=== PATIENT | male | born 1960 | race Asian ===

== ENCOUNTER 2020-08-18 10:12 | Outpatient (REF) | payer MEDICARE, MEDICAID, SELFPAY ==
--- NOTE | 2020-08-18 | FL_ITS ---
EXAMINATION: FLUOROSCOPIC ESOPHAGRAM, BARIUM SWALLOW CLINICAL INFORMATION: Dysphagia. COMPARISON: None. TECHNIQUE: The barium swallow esophagram study is performed. The patient drank thick and thin barium consistencies under fluoroscopic observation with digital image acquisition. The patient was observed during swallowing in the lateral projection using a cine loop sequence. The patient also swallowed a 13 mm barium tablet with water under fluoroscopic observation. FINDINGS: Normal control of the liquid bolus with normal inversion of the epiglottis. No laryngeal penetration or aspiration. Normal esophageal motility. Normal caliber with no mucosal lesion or ulceration. No hiatal hernia. No spontaneous gastroesophageal reflux. The barium tablet coursed promptly into the stomach. No stricture. FLUOROSCOPY TIME: 0.8 minutes. Number of images excluding screen shots and cine loop: 8 IMPRESSION: Normal barium swallow/esophagram.
== END 2020-08-18 10:13 | disposition home or self-care (01) ==
LOC: HO.RADIR 10:12
PROVIDERS: PCP Internal Medicine; Visit Provider Otolaryngology
DX: R13.10 Dysphagia, unspecified (principal); K21.9 Gastro-esophageal reflux disease without esophagitis
CPT/HCPCS: 74220

== ENCOUNTER 2020-09-14 12:57 | Outpatient (REF) | payer MEDICARE, MEDICAID, SELFPAY ==
--- NOTE | 2020-09-14 | US_ITS ---
EXAMINATION: US PELVIS LIMITED (BLADDER) CLINICAL INFORMATION: Urinary retention. COMPARISON: None TECHNIQUE: Real-time imaging of the bladder. FINDINGS: BLADDER: Well distended and normal. The ureteral jets are not demonstrated.. Prevoid bladder volume is 295 mL. Postvoid bladder volume is 46 mL. The prostate gland is enlarged and measures 4.6 x 4.4 x 5.6 cm, volume 60 mL. US/US bladder IMPRESSION: 60 mL post port residual. Enlarged prostate gland..
== END 2020-09-14 12:58 | disposition home or self-care (01) ==
LOC: HO.HMGCX 12:57
PROVIDERS: PCP Internal Medicine; Visit Provider Internal Medicine
DX: R33.9 Retention of urine, unspecified (principal)
CPT/HCPCS: 76857

== ENCOUNTER → 2021-05-12 14:29 | Outpatient (BNVA) | payer MEDICARE, MEDICAID, SELFPAY | PROVIDERS: PCP Internal Medicine; Visit Provider Urology | DX: Z13.89 Encounter for screening for other disorder (principal) | CPT/HCPCS: 99202 ==

== ENCOUNTER → 2021-06-29 13:47 | Outpatient (BNVA) | payer MEDICARE, MEDICAID, SELFPAY | PROVIDERS: PCP Internal Medicine; Visit Provider Internal Medicine | DX: J98.4 Other disorders of lung (principal); J45.909 Unspecified asthma, uncomplicated; G47.33 Obstructive sleep apnea (adult) (pediatric); E66.9 Obesity, unspecified; Z99.89 Dependence on other enabling machines and devices | CPT/HCPCS: 99212 ==

== ENCOUNTER 2021-07-17 07:36 | Outpatient (REF) | payer MEDICARE, MEDICAID, SELFPAY ==
--- NOTE | 2021-07-17 17:43 | PFT_ITS ---
Forced vital capacity and FEV1 are moderately decreased. FEV1/FVC ratio is normal. [id number] is slightly decreased and has some improvement after bronchodilator therapy. Total lung capacity markedly decreased. Residual volume normal. Diffusion capacity normal. CONCLUSION: Severe restrictive pulmonary disorder is noted. The patient may have mild obstructive disorder of the small airways, which shows improvement after bronchodilator therapy. Compared to the results of PFT in 2019, the FVC, FEV1, and total lung capacity values are slightly improved. MD JANETT Luz/MODL / [id number]
== END 2021-07-17 07:37 | disposition home or self-care (01) ==
LOC: HO.RESP 07:36
PROVIDERS: PCP Internal Medicine; Visit Provider Internal Medicine
DX: J98.4 Other disorders of lung (principal); J45.909 Unspecified asthma, uncomplicated
CPT/HCPCS: 94060; 94727; 94729

== ENCOUNTER 2021-10-23 10:40 | Day surgery (SDC) | payer MEDICARE, MEDICAID, SELFPAY ==
--- NOTE | 2021-10-20 11:02 | P.CONAN_ITS ---
Documented by User: Inés Cochran NP 10/20/21 11:04 HPI - Anesthesia Eval Consult details Narrative: 60yo M for Upper Endoscopy and Colonoscopy [facility] Active Problems Active Problems: All Active Problems (Updated 10/16/21 @ 15:25 by Stacy Reeder, JESUSITA) Urinary frequency (Acute) Reactive airway disease (Acute) Restrictive lung disease (Acute) CRISTIANA on CPAP (Acute) Obesity (BMI 30-39.9) (Acute) Past Medical History Medical History (Updated 10/16/21 @ 15:25 by Stacy Reeder, RN) Asthma BPH (benign prostatic hyperplasia) COPD with exacerbation CPAP (continuous positive airway pressure) dependence GERD (gastroesophageal reflux disease) Hypothyroidism Morbid obesity Obesity (BMI 30-39.9) Obstructive sleep apnea CRISTIANA on CPAP Prediabetes Reactive airway disease Restless leg syndrome Restrictive lung disease Schizophrenia Surgical History Surgical History (Updated 10/16/21 @ 15:41 by Stacy Reeder RN) History of facial surgery History of left inguinal hernia repair Hx of colonoscopy Social History Social History Patient Tobacco Use Status: Former Tobacco user Quit Date: 2000 Smoked in Last 30 Days: No Use of substances other than those prescribed or required for medical reasons: No Are you DNR?: Yes Advance Directives: No Advance Directives Information Provided: Yes Meds Allergies Allergy/AdvReac Type Severity Reaction Status Date / Time No Known Allergies Allergy Verified 10/23/21 11:59 Home Medications Medication Instructions Recorded Confirmed Last Taken Type budesonide-formoterol HFA 160 1 puff PO BID 05/12/21 10/16/21 10/23/21 05:45 History mcg-4.5 mcg/actuation aerosol inhaler clonazepam 0.5 mg tablet 0.5 mg PO BEDTIME 05/12/21 10/16/21 Unknown History levothyroxine 100 mcg tablet 100 mcg PO DAILY 05/12/21 10/16/21 10/23/21 05:45 History olanzapine 7.5 mg tablet 7.5 mg PO BEDTIME 05/12/21 10/16/21 Unknown History omeprazole 20 mg capsule,delayed 20 mg PO DAILY 05/12/21 10/16/21 10/23/21 05:45 History release simvastatin 10 mg tablet 10 mg PO BEDTIME 05/12/21 10/16/21 Unknown History terazosin 2 mg capsule mg PO 05/12/21 Unknown History naproxen 500 mg tablet 500 mg PO BID 06/29/21 10/23/21 10/02/21 History triamcinolone acetonide 0.1 % 1 appl TOPICAL BID-TID 06/29/21 10/16/21 Unknown History topical cream cholecalciferol (vitamin D3) 50 50 mcg PO DAILY 10/16/21 10/16/21 Unknown History mcg (2,000 unit) tablet (Vitamin D3) flaxseed oil 1,000 mg capsule 1,000 mg PO DAILY 10/16/21 10/16/21 Unknown History multivitamin 1 tab PO DAILY 10/16/21 10/16/21 Unknown History omega-3 fatty acids 500 mg capsule 500 mg PO BID 10/16/21 10/23/21 10/09/21 History vitamin C 90 mg-zinc gluconate 15 da 10/16/21 Unknown History mg-herbal complex no. 325 lozenges (Elderberry Zinc Vit C) zinc 25 mg tablet mg PO 10/16/21 Unknown History Exam Exam Date and Time: October 20, 2021 1102 Narrative Narrative: PFT 06/2021 CONCLUSION:? Severe restrictive pulmonary disorder is noted. ? The patient may have mild obstructive disorder of the small airways, which shows improvement after bronchodilator therapy. ? Compared to the results of PFT in 2019, the FVC, FEV1, and total lung capacity values are slightly improved. 2019 MIBI neg for ischemia Assessment and Plan Assessment Anesthesia Assessment: Chart Reviewed Documented by User: Sami Wolfe MD 10/23/21 13:16 [facility] Past Medical History Medical History (Updated 10/16/21 @ 15:25 by Stacy Reeder RN) Asthma BPH (benign prostatic hyperplasia) COPD with exacerbation CPAP (continuous positive airway pressure) dependence GERD (gastroesophageal reflux disease) Hypothyroidism Morbid obesity Obesity (BMI 30-39.9) Obstructive sleep apnea CRISTIANA on CPAP Prediabetes Reactive airway disease Restless leg syndrome Restrictive lung disease Schizophrenia Family History Family history of problems with anesthesia: No Surgical History Surgical History (Updated 10/16/21 @ 15:41 by Stacy Reeder RN) History of facial surgery History of left inguinal hernia repair Hx of colonoscopy History of Problems with Anesthesia: No Social History Social History Patient Tobacco Use Status: Former Tobacco user Quit Date: 2000 Smoked in Last 30 Days: No Use of substances other than those prescribed or required for medical reasons: No Are you DNR?: Yes Advance Directives: No Advance Directives Information Provided: Yes Meds Allergies Allergy/AdvReac Type Severity Reaction Status Date / Time No Known Allergies Allergy Verified 10/23/21 11:59 Home Medications Medication Instructions Recorded Confirmed Last Taken Type budesonide-formoterol HFA 160 1 puff PO BID 05/12/21 10/16/21 10/23/21 05:45 History mcg-4.5 mcg/actuation aerosol inhaler clonazepam 0.5 mg tablet 0.5 mg PO BEDTIME 05/12/21 10/16/21 Unknown History levothyroxine 100 mcg tablet 100 mcg PO DAILY 05/12/21 10/16/21 10/23/21 05:45 History olanzapine 7.5 mg tablet 7.5 mg PO BEDTIME 05/12/21 10/16/21 Unknown History omeprazole 20 mg capsule,delayed 20 mg PO DAILY 05/12/21 10/16/21 10/23/21 05:45 History release simvastatin 10 mg tablet 10 mg PO BEDTIME 05/12/21 10/16/21 Unknown History terazosin 2 mg capsule mg PO 05/12/21 Unknown History naproxen 500 mg tablet 500 mg PO BID 06/29/21 10/23/21 10/02/21 History triamcinolone acetonide 0.1 % 1 appl TOPICAL BID-TID 06/29/21 10/16/21 Unknown History topical cream cholecalciferol (vitamin D3) 50 50 mcg PO DAILY 10/16/21 10/16/21 Unknown History mcg (2,000 unit) tablet (Vitamin D3) flaxseed oil 1,000 mg capsule 1,000 mg PO DAILY 10/16/21 10/16/21 Unknown History multivitamin 1 tab PO DAILY 10/16/21 10/16/21 Unknown History omega-3 fatty acids 500 mg capsule 500 mg PO BID 10/16/21 10/23/21 10/09/21 History vitamin C 90 mg-zinc gluconate 15 da 10/16/21 Unknown History mg-herbal complex no. 325 lozenges (Elderberry Zinc Vit C) zinc 25 mg tablet mg PO 10/16/21 Unknown History Exam Airway Mallampati Class: III TM Dist: >3cm Neck ROM: Full Partial: Upper Loose/Missing/Broken Teeth: Yes (broken teeth, missing teeth diffuse upper and lower, poor dentition) Heart: [id number] Lungs: +b/s bilaterally Assessment and Plan Assessment Anesthesia Assessment: Anesthesia Plan Discussed Final Anesthetic Review Family History of Problems with Anesthesia: No History of Problems with Anesthesia: No NPO: Yes ASA Class: III Final Preanesthetic Review: No Changes in Pt Med Stat, Meds/Allgs Chart Reviewed, Consent Obtained/Reviewed and Anes Risks/Benef Reviewed Patient Risk: High Procedure Risk: Intermediate Assessment/Block/Sedation in SS: Assess/Block/Sedation-SS Anesthetic Plan Anesthetic Plan: MAC: and Agree w/ Assess. and Plan Disposition: Standard PACU
[2021-10-23 12:06] VITALS: BMI 35.6
[2021-10-23 12:14] VITALS: BP 139/85; PULSE 85; RESP 16; TEMP 36.7; O2SAT 98
--- NOTE | 2021-10-23 12:45 | PC.NURSE ---
Patient states he has signed DNR paperwork in the past. Paperwork not with him today. HCP is his sister, Ramu Avendano [phone].
[2021-10-23] MEDS: Lactated Ringers 1,000 ML 100 ML IVCONT (13:03)
--- NOTE | 2021-10-23 14:22 | PM.OP ---
Brief Operative Note Date of Service: 10/23/21 Pre-op diagnosis: Iron def. anemia Post-op diagnosis: other (Hiatal hernia, R/O Celiac disease, Colon polyp) Procedure: EGD with bx, Colonoscopy to the cecum and TI with hot snare polypectomy and clipping x 2 Surgeon: Kendrick Kothari Anesthesia: MAC Was an Spectrograph Operator used for this Procedure?: No Estimated blood loss (mL): 3.0 Pathology: other (A. Descending duodenum B. Colon polyp at 30cm) Condition: stable Disposition: PACU
[2021-10-23 14:23] VITALS: BP 109/73; PULSE 92; RESP 15; TEMP 36.7; O2SAT 99
[2021-10-23 14:36] VITALS: BP 117/58; PULSE 91; RESP 18; TEMP 36.7; O2SAT 98
--- NOTE | 2021-10-23 14:40 | OP_ITS ---
SURGEON: Kendrick Kothari MD INDICATIONS: The patient presents for evaluation of iron-deficiency anemia and gastroesophageal reflux. Full consent has been obtained from him for both procedures, including risks of bleeding and perforation. PREOPERATIVE DIAGNOSIS: POSTOPERATIVE DIAGNOSIS: PROCEDURE PERFORMED: Esophagogastroduodenoscopy with biopsies, and colonoscopy to the cecum and terminal ileum with hot snare polypectomy and placement of 2 resolution clips. ESTIMATED BLOOD LOSS: COMPLICATIONS: ANESTHESIA: Monitored anesthesia care. ASSISTANTS: SPECIMENS: PREOPERATIVE DIAGNOSES: Gastroesophageal reflux and iron-deficiency anemia. POSTOPERATIVE DIAGNOSES: Gastroesophageal reflux and iron-deficiency anemia, small hiatal hernia, rule out celiac disease, colon polyp, diverticulosis, and internal hemorrhoids. DESCRIPTION OF PROCEDURE: The patient was placed in the left lateral decubitus position. The Olympus video gastroscope was passed in the posterior oropharynx and upper esophagus under direct vision. The scope was passed slowly to the distal esophagus. The gastroesophageal junction appeared normal at 36 cm. There was no sign of any esophagitis nor Abbott's esophagus. There was a small hiatal hernia. The scope was advanced to pylorus and duodenum was cannulated to the descending portion. The duodenum including the bulb appeared normal without mass or ulceration. Biopsies were obtained from the second and third portions of duodenum. The scope was withdrawn back into the stomach. The gastric antrum and body appeared normal with good peristalsis. The scope was retroflexed visualizing the proximal stomach carefully which appeared normal, without any sign of mass or ulceration. Scope was straightened and withdrawn back into the esophagus. The esophageal mucosa appeared normal. The scope was withdrawn from the patient. He was turned around for colonoscopy. The digital rectal exam revealed no abnormalities. The Olympus video pediatric colonoscope was entered into the rectum and advanced easily to the cecum. Once in the cecum, I did identify normal-appearing cecal pouch with appendiceal orifice and a normal-appearing ileocecal valve. The terminal ileum was cannulated and appeared normal. The scope was withdrawn back in the colon. The entire cecum and ileocecal valve appeared normal. The scope was slowly withdrawn assessing all mucosal surfaces carefully. Preparation was excellent. At 30 cm, was an approximately 6 to 8 mm polyp with an inflammatory appearance at the tip of the polyp, but with the base of the polyp appearing somewhat more adenomatous. This was snared and removed with the hot snare and then recovered by suction. There was some oozing post-polypectomy, and therefore, 2 Resolution clips were placed with good application and good hemostasis. The area was irrigated and observed and there was no further bleeding. I did not visualize any other polyps, colitis, nor angiodysplasia. There was a mild amount of sigmoid diverticulosis. In the rectum, scope was retroflexed visualizing internal hemorrhoids, but no other pathology. The rectal mucosa appeared normal. Scope was straightened out and withdrawn from the patient. He tolerated both procedures well and was returned to recovery area in stable condition. IMPRESSION: 1. Small hiatal hernia. 2. Rule out celiac disease. 3. Probable inflammatory colon polyp, status post snare polypectomy. 4. Diverticulosis. 5. Internal hemorrhoids. PLAN: The results of the pathology will be checked. He has been advised to resume his iron, but not to use any aspirin or NSAIDs for at least 1 week. He will be seen in followup for an office visit. MD CLYDE Bello/JAILENE / [id number]
== END 2021-10-23 15:07 | disposition home or self-care (01) ==
PROVIDERS: PCP Internal Medicine; Visit Provider Internal Medicine
PROC: (CPT 45385; principal; 2021-10-23 12:10)
DX: D50.9 Iron deficiency anemia, unspecified (principal); K51.40 Inflammatory polyps of colon without complications; K57.30 Diverticulosis of large intestine without perforation or abscess without bleeding; K64.8 Other hemorrhoids; K21.9 Gastro-esophageal reflux disease without esophagitis; K29.80 Duodenitis without bleeding; K31.89 Other diseases of stomach and duodenum; K44.9 Diaphragmatic hernia without obstruction or gangrene; G47.33 Obstructive sleep apnea (adult) (pediatric); J44.9 Chronic obstructive pulmonary disease, unspecified; E03.9 Hypothyroidism, unspecified; R73.03 Prediabetes; E66.01 Morbid (severe) obesity due to excess calories; Z68.38 Body mass index [BMI] 38.0-38.9, adult; Z79.51 Long term (current) use of inhaled steroids; Z79.899 Other long term (current) drug therapy; Z99.89 Dependence on other enabling machines and devices; Z79.1 Long term (current) use of non-steroidal anti-inflammatories (NSAID); Z87.891 Personal history of nicotine dependence; Z66 Do not resuscitate
CPT/HCPCS: 45385; 43239; 88305

== ENCOUNTER → 2022-01-22 14:03 | Outpatient (BNVA) | payer MEDICARE, MEDICAID, SELFPAY | PROVIDERS: PCP Internal Medicine; Visit Provider Internal Medicine | DX: G47.33 Obstructive sleep apnea (adult) (pediatric) (principal); J45.909 Unspecified asthma, uncomplicated; J98.4 Other disorders of lung; E66.9 Obesity, unspecified; Z99.89 Dependence on other enabling machines and devices; Z68.36 Body mass index [BMI] 36.0-36.9, adult | CPT/HCPCS: 99212 ==

== ENCOUNTER 2022-05-25 06:51 | Outpatient (REF) | payer MEDICARE, MEDICAID, SELFPAY ==
--- NOTE | ~2022-05-25 | XR_ITS ---
EXAMINATION: XR CHEST CLINICAL INFORMATION: Elevated right diaphragm with adjacent scarring or subsegmental atelectasis right middle and lower lobe on noncontrast CT. COMPARISON: Chest radiographs 10/09/2016, 01/18/2016; CT chest noncontrast 07/15/2020. TECHNIQUE: 2 views of the chest were obtained. FINDINGS: There is chronic eventration right anterior mid diaphragm with crowding bronchovascular markings adjacent to the elevation similar to prior CT. There is no lobar or segmental airspace consolidation or effusion. The costophrenic sulci are clear. Cardiopericardial silhouette and hilar and mediastinal contours are similar to prior studies. No acute bony abnormality. XR/XR chest 2V IMPRESSION: -Eventration right anterior mid diaphragm with secondary passive atelectasis right base similar to CT 2020. -No lobar or segmental airspace consolidation or effusion.
== END 2022-05-25 06:52 | disposition home or self-care (01) ==
LOC: HO.XRAY 06:51
PROVIDERS: PCP Internal Medicine; Visit Provider Internal Medicine
DX: J98.11 Atelectasis (principal)
CPT/HCPCS: 71046

== ENCOUNTER → 2022-08-06 13:59 | Outpatient (BNVA) | payer MEDICARE, MEDICAID, SELFPAY | PROVIDERS: PCP Internal Medicine; Visit Provider Internal Medicine | DX: J45.909 Unspecified asthma, uncomplicated (principal); J98.4 Other disorders of lung; G47.33 Obstructive sleep apnea (adult) (pediatric); E66.9 Obesity, unspecified; Z68.38 Body mass index [BMI] 38.0-38.9, adult; Z99.89 Dependence on other enabling machines and devices | CPT/HCPCS: 99212 ==

== ENCOUNTER → 2023-04-22 13:35 | Outpatient (BNVA) | payer MEDICARE, MEDICAID, SELFPAY | PROVIDERS: PCP Internal Medicine; Visit Provider Internal Medicine | DX: G47.33 Obstructive sleep apnea (adult) (pediatric) (principal); J98.4 Other disorders of lung; J45.909 Unspecified asthma, uncomplicated; Q85.00 Neurofibromatosis, unspecified; Q79.1 Other congenital malformations of diaphragm; E66.9 Obesity, unspecified; Z79.899 Other long term (current) drug therapy; Z68.36 Body mass index [BMI] 36.0-36.9, adult | CPT/HCPCS: 99212 ==

== ENCOUNTER 2023-08-14 13:56 | Outpatient (AMB) | payer MEDICARE, MEDICAID, SELFPAY ==
--- NOTE | 2023-08-14 13:58 | MHC.OFFVIS ---
Intake Vital Signs 08/14/23 14:03 Height 5 ft 10 in Weight 260 lb BMI 37.3 BP 130/60 Blood Pressure Location Rt brachial Position Sitting Pulse 76 Pulse Source Pulse Oximeter Pulse Oximetry (%) 96 Oxygen Delivery Method Room Air Intake Visit Reasons: Obstructive sleep apnea Intake Note: pt is here for follow up of CRISTIANA, feels good, but does get short of breath with walking, some voice issues Allergies No Known Allergies Allergy (Verified 08/14/23 14:08) Medication List - Last Reconciled 08/14/23 by Amilcar Rivas MD albuterol sulfate 90 mcg/actuation (ProAir HFA) 2 puffs inhalation Q4-6H PRN 90 days cholecalciferol (vitamin D3) (Vitamin D3) 50 mcg PO DAILY clonazepam 0.5 mg PO BEDTIME levothyroxine 100 mcg PO DAILY mometasone-formoterol 200-5 mcg/actuation (Dulera) 2 puffs inhalation BID 90 days MDD 4 puffs multivitamin 1 tab PO DAILY PRN naproxen 500 mg PO BID olanzapine 7.5 mg PO BEDTIME omega-3 fatty acids 500 mg PO BID omeprazole 20 mg PO DAILY simvastatin 10 mg PO BEDTIME Spiriva with HandiHaler (tiotropium bromide) 1 cap inhalation DAILY NS tamsulosin (Flomax) 0.4 mg PO BEDTIME terazosin 4 mg PO BID triamcinolone acetonide 0.1% 1 appl topical BID-TID vit C-Zn gluc-herbal no.325 90-15 mg (Elderberry Zinc Vit C) da zinc mg PO Do you need a note to return to daycare/school/sports/work: No HPI Obstructive sleep apnea HPI Details 62 years old gentleman, with diagnosis of obstructive sleep apnea, gross obesity, Neurofibromatosis, chronic eventration of right hemidiaphragm, restrictive and obstructive lung disorder, Comes after 6 months for follow-up. He has new CPAP device which works very good. Uses his CPAP very regularly every day, up to 8 hours per night. He sleeps very well, Denies any daytime sleepiness. Breathing is well controlled, and he has had no acute exacerbations. He is up to date with vaccinations. He has increased walking on a daily bases but weight remains unchanged. [facility] Medical History Diaphragmatic eventration Neurofibromatosis Prediabetes Schizophrenia Hypothyroidism BPH (benign prostatic hyperplasia) GERD (gastroesophageal reflux disease) Restless leg syndrome Reactive airway disease Restrictive lung disease CRISTIANA on CPAP Obesity (BMI 30-39.9) CPAP (continuous positive airway pressure) dependence COPD with exacerbation Asthma Obstructive sleep apnea Morbid obesity Surgical History Hx of colonoscopy History of facial surgery History of left inguinal hernia repair Social History Patient Tobacco Use Status: Former Tobacco user Quit Date: 2000 Review of Systems Const All systems reviewed & are unremarkable except as noted in HPI and below Eyes Reports no additional complaints ENT Reports no additional complaints Card Denies chest pain, Denies irregular heart rhythm and Denies leg edema Resp Reports as per HPI GI Reports dyspepsia (BEING TREATED WITH OMEPRAZOLE ) and Reports heartburn Reports no additional complaints Musc Reports no additional complaints Neuro Reports no additional complaints Psych Reports anxiety (UNDER CONTROL) and Reports depression (UNDER CONTROL) Endo Reports no additional complaints Physical Exam Vital Signs: Last Vital Signs Pulse 76 08/14/23 14:03 BP 130/60 08/14/23 14:03 Pulse Ox 96 08/14/23 14:03 Oxygen Delivery Method Room Air 08/14/23 14:03 BMI result Body Mass Index 37.3 Const Other: Remains grossly overweight and there has been no change in his weight in the last 6 months. General: comfortable, no acute distress, alert and awake Orientation/consciousness: patient oriented x3 HEENT Head: Yes normal to inspection General nose exam: No nasal polyps present and No nasal discharge present Face and sinus: Yes sinuses nontender Mouth: oropharynx normal Throat: Yes posterior oropharynx normal Eyes General: appearance normal, both eyes and all related structures Neck Neck: Yes normal visual inspection, Yes no lymphadenopathy, Yes trachea midline and Yes no JVD Thyroid: Thyroid normal Chest Chest palpation & inspection: normal inspection of the chest, normal palpation of entire chest wall and no tenderness Resp Other: Percussion note is resonant, breath sounds are generally diminished,equal on both sides, more so over the rt lower lobe . But no wheezes rhonchi or Creps are heard. Cardio Palpation: normal PMI Rate: regular rate Rhythm: regular rhythm Heart sounds: no gallops and no murmurs Peripheral pulses: Peripheral pulses 2+ throughout GI Palpation (GI): Soft to palpation, nontender, No hepatosplenomegaly present and no masses Auscultation: normal bowel sounds Back/Spine/Pelvis Thoracic/Lumbar Spine: thoracic and lumbar spine normal to inspection Skin General skin exam: rashes and/or lesions noted (He has extensive, generalized in neurofibromatosis lesions.) Neuro General: patient oriented x3 and no focal motor deficits Cranial nerves: Yes CN's II-XII intact bilaterally Extrem General: Yes normal to inspection, Yes no clubbing, cyanosis or edema and Yes no calf tenderness Psych Appearance: grossly normal and well kempt Speech and movement: Normal speech and movement present Results Reviewed Results Reviewed: COMPLIANCE REPORT FOR THE LAST 30 NIGHTS IS REVIEWED. USED 30/30 NIGHTS, AVERAGE USE PER NIGHT 8 HOURS. PRESSURE 12 CM. THERE IS A MODERATE AMOUNT OF AIR LEAK. RESIDUAL AHI 0.2 Assessment & Plan Assessment & Plan (1) Obesity (BMI 30-39.9): Comment: HE IS WELL AWARE OF THIS . HE HAS BEEN RESTRICTING HIS DIETRY INTAKE AND ALSO WALKING MORE OFTEN DURING THE DAY. WEIGHT IS HOLDING STABLE . Code(s): E66.9 - Obesity, unspecified (2) CRISTIANA on CPAP: Comment: HE HAS LONGSTANDING HISTORY OF CRISTIANA. HE HAS NEW CPAP EQUIPMENT, WHICH IS WORKING VERY WELL. HE HAS BEEN VERY COMPLIANT TO THE USE OF CPAP AND IS SLEEPING WELL NO CHANGES NEEDED. Code(s): G47.33 - Obstructive sleep apnea (adult) (pediatric); Z99.89 - Dependence on other enabling machines and devices (3) Restrictive lung disease: Comment: SEVERE RESTRICTIVE PULMONARY DISORDER SEC .TO : EVENTRATION OF RT HEMIDIAPHRAGM AND OBESITY . TX: CONTINUE TO DO DEEP BREATHING EXERCISES DAILY. CONTINUE TO LOSE WEIGHT. , BY RESTRICTING DIETARY INTAKE AND WALKING MORE EVERY DAY. Code(s): J98.4 - Other disorders of lung (4) Reactive airway disease: Comment: HIS GOOD RESPONSE TO BRONCHODILATORS INDICATES THAT HE PROBABLY DOES HAVE REACTIVE AIRWAYS DISORDER/ASTHMA , IN ADDITION TO RESTRICTIVE LUNG DISEASE. TX CONTINUE SPIRIVA HANDIHALER 1 INHALATION DAILY AND DULERA 200-5 2 puffs bid . ALBUTEROL HFA 2 PUFFS Q 6 HRS PRN Code(s): J45.909 - Unspecified asthma, uncomplicated (5) Diaphragmatic eventration: Comment: He has had eventration of the right hemidiaphragm. Most likely congenital or may be due to some accident in younger age that he is not aware of. This is partly contributing to his restrictive lung disorder. Code(s): 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 Coding Level of Care Code Est Pt Level 3 (75929) Diagnoses Obesity (BMI 30-39.9) E66.9 CRISTIANA on CPAP G47.33; Z99.89 Restrictive lung disease J98.4 Reactive airway disease J45.909 Diaphragmatic eventration Q79.1
[2023-08-14 14:03] VITALS: BP 130/60; PULSE 76; O2SAT 96; BMI 37.3
== END 2023-08-14 14:21 | disposition home or self-care (01) ==
PROVIDERS: PCP Internal Medicine; Visit Provider Internal Medicine
DX: E66.9 Obesity, unspecified (principal); G47.33 Obstructive sleep apnea (adult) (pediatric); Z99.89 Dependence on other enabling machines and devices; J98.4 Other disorders of lung; J45.909 Unspecified asthma, uncomplicated; Q79.1 Other congenital malformations of diaphragm
CPT/HCPCS: 99213

== ENCOUNTER → 2023-08-14 13:56 | Outpatient (BNVA) | payer MEDICARE, MEDICAID, SELFPAY | PROVIDERS: PCP Internal Medicine; Visit Provider Internal Medicine | DX: G47.33 Obstructive sleep apnea (adult) (pediatric) (principal); J98.4 Other disorders of lung; J45.909 Unspecified asthma, uncomplicated; Q79.1 Other congenital malformations of diaphragm; E66.9 Obesity, unspecified; Z99.89 Dependence on other enabling machines and devices; Z68.37 Body mass index [BMI] 37.0-37.9, adult | CPT/HCPCS: 99212 ==

== ENCOUNTER 2024-01-16 09:32 | Outpatient (AMB) | payer MEDICARE, MEDICAID, SELFPAY ==
--- NOTE | 2024-01-16 09:50 | A.OFFVIS_ITS ---
Intake Vital Signs 01/16/24 09:51 Height 5 ft 10 in Weight 238 lb 1.588 oz BMI 34.2 BP 128/78 Blood Pressure Location Lt brachial Position Sitting Pulse 84 Intake Visit Reasons: Family Hx CAD Intake Note: pt has chest pain and family hx CAD Career Advisor Required: No Allergies No Known Allergies Allergy (Verified 08/14/23 14:08) Medication List - Last Reconciled 01/16/24 by Pedro Steward MD albuterol sulfate 90 mcg/actuation (ProAir HFA) 2 puffs inhalation Q4-6H PRN 90 days clonazepam 0.5 mg PO BEDTIME levothyroxine 100 mcg PO DAILY mometasone-formoterol 200-5 mcg/actuation (Dulera) 2 puffs inhalation BID 90 days MDD 4 puffs multivitamin 1 tab PO DAILY PRN naproxen 500 mg PO BID olanzapine 7.5 mg PO BEDTIME omeprazole 20 mg PO DAILY simvastatin 10 mg PO BEDTIME Spiriva with HandiHaler (tiotropium bromide) 1 cap inhalation DAILY NS tamsulosin (Flomax) 0.4 mg PO BEDTIME terazosin 4 mg PO BID triamcinolone acetonide 0.1% 1 appl topical BID-TID vit C-Zn gluc-herbal no.325 90-15 mg (Elderberry Zinc Vit C) da HPI HPI Comments History of Present Illness Details Guillermo comes for a self-referral for evaluation of coronary artery disease. He has a pleasant 63-year-old [place] male with prior medical history of COPD related to smoking, obesity, borderline diabetes not on medications, hyperlipidemia on statin therapy with well optimized cholesterol as per him, no hypertension, obstructive sleep apnea. 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 Patient does get exertional shortness of breath but compared to 4 years ago he says shortness of breath after pulmonary rehab and with regular exercise has been improving. Her he can not walk outside for long period time because of shortness of breath. However the symptoms are not new. He does not get any exertional chest pain. Occasionally gets twinges in his chest that last for 7 seconds happening mostly at rest. However he is concerned about coronary artery disease given his risk factors especially premature coronary artery disease in his father who had coronary artery bypass grafting at a young age and his brother recently had a very high coronary calcium score of greater than 2000 and require a stent. He is worried about himself having coronary artery disease. He denies any orthopnea, PND, leg edema. Denies any prolonged palpitation irregular heartbeat. No lightheadedness, syncope. [facility] Medical History Diaphragmatic eventration Neurofibromatosis Prediabetes Schizophrenia Hypothyroidism BPH (benign prostatic hyperplasia) GERD (gastroesophageal reflux disease) Restless leg syndrome Reactive airway disease Restrictive lung disease CRISTIANA on CPAP Obesity (BMI 30-39.9) CPAP (continuous positive airway pressure) dependence COPD with exacerbation Asthma Obstructive sleep apnea Morbid obesity Surgical History Hx of colonoscopy History of facial surgery History of left inguinal hernia repair Social History Patient Tobacco Use Status: Former Tobacco user Quit Date: 2000 Review of Systems Const Denies weakness Eyes Denies loss of vision ENT Denies dizziness Card Reports chest pain, Denies chest pain with activity, Denies syncope, Denies rapid heart rate, Denies pedal edema, Denies edema, Denies leg edema, Denies lightheadedness, Denies palpitations, Denies dyspnea, Denies dyspnea on exertion and Denies orthopnea Resp Denies cough, Denies dyspnea, Denies dyspnea on exertion and Denies wheezing GI Denies hematochezia and Denies change in stool character Denies dysuria and Denies urinary frequency Musc Denies abnormal gait, Denies muscle cramps, Denies muscle weakness, Denies numbness, Denies radiating pain into limb and Denies tingling Skin/Breast Denies nail changes and Denies rash Neuro Denies abnormal gait, Denies dizziness, Denies syncope, Denies loss of vision, Denies memory loss, Denies numbness, Denies tingling and Denies weakness Psych Denies depression and Denies memory loss Endo Denies palpitations [place]/Lymph Reports easy bruising and Reports other (anemia) Aller/Immun Denies wheezing Physical Exam Vital Signs: Last Vital Signs Pulse 84 01/16/24 09:51 BP 128/78 01/16/24 09:51 BMI result Body Mass Index 34.2 Const General: cooperative, comfortable, no acute distress, alert, awake and Physically active Nutritional Appearance: obese Orientation/consciousness: patient oriented x3 Limitations: no limitations HEENT Head: Yes normocephalic and Yes atraumatic Neck Neck: Yes trachea midline and Yes no JVD Resp Effort & Inspection: normal respiratory effort Auscultation: clear to auscultation bilaterally, no wheezes and diminished lung sounds Cardio Jugular venous distension: no JVD Palpation: normal PMI Rate: regular rate Rhythm: regular rhythm Heart sounds: S1 normal heart sound present, S2 normal heart sound present, no click, no gallops, no murmurs and no rubs GI Auscultation: normal bowel sounds Skin General skin exam: no rashes or lesions noted Neuro General: patient oriented x3 and no focal motor deficits Extrem General: Yes no clubbing, cyanosis or edema Office Procedures EKG Details: EKG shows normal sinus rhythm with diffuse non specific ST T wave changes with rightward axis [id number], Complete Assessment & Plan Assessment & Plan (1) SOB (shortness of breath) on exertion: Code(s): R06.02 - Shortness of breath Plan: Shortness of breath on exertion most likely related pulmonary parenchymal disease and possibly restrictive pulmonary defect related to his obesity, although cor pulmonale and/or LV systolic/diastolic dysfunction needs to be ruled out. Will suggest echocardiogram to further assess for the same. This will be scheduled in near future. He has high likelihood with multiple risk factors for underlying coronary artery disease. I think it is reasonable to proceed with coronary calcium score as initial screening test and further testing based on the findings of coronary calcium score. If he has significant elevated coronary calcium score would suggest cardiac catheterization. If he has moderately elevated calcium score would suggest a stress test to further assess for myocardial ischemia that would need invasive cardiac catheterization. This was discussed with him. He should be on aggressive statin therapy with target goal LDL less than 70 mg/dL. Will obtain lipid panel from your office. Blood pressure is currently well optimized. Hemoglobin A1c less than 7%. He is encouraged to continue to participate in regular physical activity and participate in weight loss program. He understands agrees. Follow up in the clinic after above-mentioned test. Thank you for allowing me to partake in his care Orders: Orders CT Coronary Calcium Score 1 Week R06.02 - Shortness of breath CA echo transthoracic complete Today R06.02 - Shortness of breath Coding Level of Care Code New Pt Level 4 (48899) Diagnoses SOB (shortness of breath) on exertion R06.02 CPT Codes EKG - CPT: 36393-[id number], Complete ([id number])
[2024-01-16 09:51] VITALS: BP 128/78; PULSE 84; BMI 34.2
== END 2024-01-16 10:27 | disposition home or self-care (01) ==
PROVIDERS: PCP Internal Medicine; Visit Provider Internal Medicine Cardiovascular Disease
DX: R06.02 Shortness of breath (principal)
CPT/HCPCS: 93010; 99204

== ENCOUNTER → 2024-01-16 09:32 | Outpatient (BNVA) | payer MEDICARE, MEDICAID, SELFPAY | PROVIDERS: PCP Internal Medicine; Visit Provider Internal Medicine Cardiovascular Disease | DX: R06.02 Shortness of breath (principal) | CPT/HCPCS: 93005; 99202 ==

== ENCOUNTER → 2024-01-17 08:10 | Outpatient (REF) | payer MEDICARE, MEDICAID, SELFPAY ==
--- NOTE | 2024-01-17 08:13 | CA_ITS ---
Transthoracic Echocardiogram Patient (Last, First, Middle): Guillermo Cosby, Gender: Male Date of : 1960 Age: 63 Procedure Date: 01/17/2024 Procedure Type: Transthoracic Echocardiogram Location: OP Height: 175.26 cm Weight: 117.99 kg BSA: 2.31 m2 Heart Rate: 74 bpm BP: 120 / 65 mmHg Framing Inspector: ELIUD Referring MD: Pedro Steward MD Symptoms: R06.02 - Shortness of breath Study Quality: Adequate ECG Rhythm: Sinus Conclusions: - The left ventricular systolic function is normal. The calculated ejection fraction is 69% by biplane method. - There is moderately increased left ventricular wall thickness. - No obvious valvular pathology seen on this study. Findings Left Ventricle Normal left ventricular cavity size. There is moderately increased left ventricular wall thickness. The left ventricular systolic function is normal. The calculated ejection fraction is 69% by biplane method. There is no evidence of regional wall motion abnormalities. Diastolic function is normal for age. LV peak GLS -20.2%. Right Ventricle Normal right ventricular cavity size and systolic function. Atria Both atria are normal in size. Aortic Valve The aortic valve was not well visualized. There is no aortic valve stenosis. There is no aortic valve regurgitation. Mitral Valve The mitral valve appears normal. There is no mitral valve regurgitation. There is no mitral valve stenosis. Pulmonic Valve The pulmonic valve is likely normal. Tricuspid Valve There is trace tricuspid valve regurgitation. There is no evidence of pulmonary hypertension. Great Vessels The asc aorta is normal in size. Venous The inferior vena cava is normal in size and collapses greater than 50% with inspiration. Pericardium/Pleural There is no evidence of pericardial effusion. Prior Study Comparison No prior study available for comparison. Recommendations, Care & Conclusions No obvious valvular pathology seen on this study. Measurements 2D Linear Measurements IVSd: 1.41 0.6-0.9/0.6-1.0 cm LVIDd: 5.21 3.9-5.3/4.2-5.9 cm LVIDd Index: 2.26 2.4-3.2/2.2-3.1 cm/m2 LVIDs: 3.01 2.0-3.6 cm LVPWd: 1.51 0.7-1.1 cm LA Diam: 3.90 2.7-3.8/3.0-4.0 cm LAIDs Index: 1.69 1.5-2.3 cm/m2 LV Mass: 411.78 67-162/88-224 g LV Mass Index: 178.26 43-95/49-115 g/m2 LVOT Diam: 2.20 3.0+(-)1.3 cm 2D Systolic Function EF 4C: 65.00 >55% EF 2C: 72.10 >55% EF BiP: 68.80 >55% Mitral Valve MV Pk E: 0.73 MV PK A: 0.90 MV Decel Time: 227.00 E/A: 0.80 E'Lateral: 5.44 E'Medial: 6.42 E/E' Med: 11.40 E/E' Lat: 13.50 PHT: 67.00 MVA PHT: 3.28 Decel [place]: 3.23 Aortic Valve AoV Pk Dru: 1.65 AoV Mn Dru: 1.20 AoV VTI: 0.35 AoV Pk Grad: 11.00 Aov Mn Grad: 6.00 STEPHANIE Cont.VTI: 2.82 LVOT LVOT Pk Dru: 1.27 LVOT Mn Dru: 0.86 LVOT VTI: 0.26 LVOT Pk Grad: 6.00 LVOT Mn Grad: 3.00 LVOT Diam: 2.20 LVOT Area: 3.80 Diastolic Function MV Pk E: 0.73 MV Pk A: 0.90 E/A: 0.80 E'Medial: 6.42 E/E' Med: 11.40 E' Laterial: 5.44 E/E' Lat: 13.50 Right Ventricle TAPSE (mm): 24.30 TVS' Dru: 18.80 Tricuspid Valve RA Press: 3.00 Great Vessels Aorta Sinus of Valsalva: 4.10 2.0-3.5 cm Ao Asc: 3.60 2.1-3.4 cm Pulmonary Valve PV Pk Dru: 1.34 Peak PV Grad: 7.00 Updated in Other Vendor System with Status of Final Neal Loyola MD electronically signed on 01/18/2024 12:23:45 PM with status of Final
== END ==
LOC: HO.CARD 08:10
PROVIDERS: PCP Internal Medicine; Visit Provider Internal Medicine Cardiovascular Disease
DX: R06.02 Shortness of breath (principal)
CPT/HCPCS: 93306; 93356

== ENCOUNTER → 2024-01-17 08:13 | Outpatient (BNV) | payer MEDICARE, MEDICAID, SELFPAY | PROVIDERS: PCP Internal Medicine; Visit Provider Internal Medicine | DX: R06.02 Shortness of breath (principal) | CPT/HCPCS: 93306 ==

== ENCOUNTER 2024-02-12 07:49 | Outpatient (REF) | payer MEDICARE, MEDICAID, SELFPAY ==
[2024-02-12 08:32] LABS: Hemoglobin 14.1 g/dl (14.0-18.0); Mean Corpuscular HGB Conc 31.3 g/dl (31.0-36.0); Mean Corpuscular Hemoglobin 24.2 pg (27.0-33.0); Mean Corpuscular Volume 77.2 fL (80.0-98.0); Mean Platelet Volume 10.8 fL (9.4-12.4); Platelet Count 282 X10*3/uL (160-400); Red Blood Count 5.83 X10*6/uL (4.60-5.80); Red Cell Distribution Width 14.6 % (11.0-16.0); White Blood Count 8.8 X10*3/uL (4.8-10.8)
[2024-02-12 08:33] LABS: Prothrombin Time 11.6 SEC (11.1-13.3)
[2024-02-12 08:51] LABS: Anion Gap 11 (12-20); Blood Urea Nitrogen 18 mg/dL (9-16); Calcium 9.7 mg/dL (8.4-10.2); Carbon Dioxide 29 mmol/L (22-29); Chloride 102 mmol/L (96-108); Estimated Glomerular Filt Rate > 60; Glucose Random 159 mg/dL (60-115); Potassium 4.3 mmol/L (3.3-5.1); Sodium 138 mmol/L (135-145)
== END 2024-02-12 07:50 | disposition home or self-care (01) ==
LOC: HO.LAB 07:49
PROVIDERS: PCP Internal Medicine; Visit Provider Internal Medicine Cardiovascular Disease
DX: R06.02 Shortness of breath (principal); I25.10 Atherosclerotic heart disease of native coronary artery without angina pectoris
CPT/HCPCS: 36415; 80048; 85027; 85610

== ENCOUNTER 2024-02-18 10:27 | Outpatient (AMB) | payer MEDICARE, MEDICAID, SELFPAY ==
[2024-02-18 11:08] VITALS: BP 112/60; PULSE 68; O2SAT 98; BMI 36.2
--- NOTE | 2024-02-18 11:08 | A.OFFVIS_ITS ---
Intake Vital Signs 02/18/24 11:08 Height 5 ft 10 in Weight 252 lb 6.868 oz BMI 36.2 BP 112/60 Blood Pressure Location Lt brachial Position Sitting Pulse 68 Pulse Source Pulse Oximeter Pulse Oximetry (%) 98 Oxygen Delivery Method Room Air Intake Visit Reasons: Obstructive sleep apnea Intake Note: pt is here for follow up of CRISTIANA, having air leaks due to dentures. He is having some shortness of breath and seeing cardiology and having angiogram next week. Automobile Mechanic Motor Required: No Allergies No Known Allergies Allergy (Verified 02/18/24 11:39) Medication List - Last Reconciled 02/18/24 by Amilcar Rivas MD albuterol sulfate 90 mcg/actuation (ProAir HFA) 2 puffs inhalation Q4-6H PRN 90 days clonazepam 0.5 mg PO BEDTIME levothyroxine 100 mcg PO DAILY mometasone-formoterol 200-5 mcg/actuation (Dulera) 2 puffs inhalation BID 90 days MDD 4 puffs multivitamin 1 tab PO DAILY PRN naproxen 500 mg PO BID olanzapine 7.5 mg PO BEDTIME omeprazole 20 mg PO DAILY simvastatin 10 mg PO BEDTIME Spiriva with HandiHaler (tiotropium bromide) 1 cap inhalation DAILY NS tamsulosin (Flomax) 0.4 mg PO BEDTIME terazosin 4 mg PO BID triamcinolone acetonide 0.1% 1 appl topical BID-TID vit C-Zn gluc-herbal no.325 90-15 mg (Elderberry Zinc Vit C) da Do you need a note to return to daycare/school/sports/work: No HPI Obstructive sleep apnea HPI Details Mr. Cosby 63 years old gentleman is here for follow-up for his obstructive sleep apnea as well as restrictive lung disease. Kendrick matos has been doing very well, except for getting short of breath when he walks on an incline, or climbs stairs. At home at level ground he can walk as long as he wants. Because of his dyspnea on exertion he had cardiac workup, and is now to undergo cardiac catheterization. However he denies chest pain on walking. As far as sleep apnea is concerned he it is well controlled with the use of CPAP which he uses with full compliance. Currently his weight is down by about 10 lb and he feels better, [facility] Medical History Diaphragmatic eventration Neurofibromatosis Prediabetes Schizophrenia Hypothyroidism BPH (benign prostatic hyperplasia) GERD (gastroesophageal reflux disease) Restless leg syndrome Reactive airway disease Restrictive lung disease CRISTIANA on CPAP Obesity (BMI 30-39.9) CPAP (continuous positive airway pressure) dependence COPD with exacerbation Asthma Obstructive sleep apnea Morbid obesity Surgical History Hx of colonoscopy History of facial surgery History of left inguinal hernia repair Social History Patient Tobacco Use Status: Former Tobacco user Quit Date: 2000 Review of Systems Const All systems reviewed & are unremarkable except as noted in HPI and below Eyes Reports no additional complaints ENT Reports no additional complaints Card Denies chest pain, Denies irregular heart rhythm and Denies leg edema Resp Reports as per HPI GI Reports dyspepsia (BEING TREATED WITH OMEPRAZOLE ) and Reports heartburn Reports no additional complaints Musc Reports no additional complaints Neuro Reports no additional complaints Psych Reports anxiety (UNDER CONTROL) and Reports depression (UNDER CONTROL) Endo Reports no additional complaints Physical Exam Vital Signs: Last Vital Signs Pulse 68 02/18/24 11:08 BP 112/60 02/18/24 11:08 Pulse Ox 98 02/18/24 11:08 Oxygen Delivery Method Room Air 02/18/24 11:08 BMI result Body Mass Index 36.2 Const Other: Remains grossly overweight and there has been no change in his weight in the last 6 months. General: comfortable, no acute distress, alert and awake Orientation/consciousness: patient oriented x3 HEENT Head: Yes normal to inspection General nose exam: No nasal polyps present and No nasal discharge present Face and sinus: Yes sinuses nontender Mouth: oropharynx normal Throat: Yes posterior oropharynx normal Eyes General: appearance normal, both eyes and all related structures Neck Neck: Yes normal visual inspection, Yes no lymphadenopathy, Yes trachea midline and Yes no JVD Thyroid: Thyroid normal Chest Chest palpation & inspection: normal inspection of the chest, normal palpation of entire chest wall and no tenderness Resp Other: Percussion note is resonant, breath sounds are generally diminished, more so over the rt lower lobe . But no wheezes rhonchi or Creps are heard. Cardio Palpation: normal PMI Rate: regular rate Rhythm: regular rhythm Heart sounds: no gallops and no murmurs Peripheral pulses: Peripheral pulses 2+ throughout GI Palpation (GI): Soft to palpation, nontender, No hepatosplenomegaly present and no masses Auscultation: normal bowel sounds Back/Spine/Pelvis Thoracic/Lumbar Spine: thoracic and lumbar spine normal to inspection Skin General skin exam: rashes and/or lesions noted (He has extensive, generalized in neurofibromatosis lesions.) Neuro General: patient oriented x3 and no focal motor deficits Cranial nerves: Yes CN's II-XII intact bilaterally Extrem General: Yes normal to inspection, Yes no clubbing, cyanosis or edema and Yes no calf tenderness Psych Appearance: grossly normal and well kempt Speech and movement: Normal speech and movement present Results Reviewed Results Reviewed: CPAP COMPLIANCE REPORT REVIEWED USED 30/30 NIGHTS, 100%. AVERAGE USE IT PER NIGHT. 8 HOURS 13 MINUTES THERE IS NO SIGNIFICANT AIR LEAK. RESIDUAL AHI 0.2 Assessment & Plan Assessment & Plan (1) Obesity (BMI 30-39.9): Comment: HE IS MODERATELY OBESE. CURRENTLY HIS WEIGHT IS DOWN BY 10 LBs AND HE FEELS BETTER Code(s): E66.9 - Obesity, unspecified Plan: DISCUSSED ABOUT DIET AND ENCOURAGED TO REDUCE THE CALORIES INTAKE. ALSO START WALKING MORE ON A DAILY BASIS (2) CRISTIANA on CPAP: Comment: HE HAS LONGSTANDING HISTORY OF CRISTIANA. HE HAS NEW CPAP EQUIPMENT, WHICH IS WORKING VERY WELL. HE HAS BEEN VERY COMPLIANT AND BENEFITING FROM THE USE OF CPAP. Code(s): G47.33 - Obstructive sleep apnea (adult) (pediatric); Z99.89 - Dependence on other enabling machines and devices Plan: COMMENDED FOR HIS GOOD COMPLIANCE AND ENCOURAGED TO KEEP ON USING THE CPAP EVERY NIGHT (3) Restrictive lung disease: Comment: SEVERE RESTRICTIVE PULMONARY DISORDER SEC .TO : EVENTRATION OF RT HEMIDIAPHRAGM AN OBESITY . Code(s): J98.4 - Other disorders of lung Plan: TX: CONTINUE TO DO DEEP BREATHING EXERCISES DAILY. CONTINUE TO LOSE WEIGHT. , BY RESTRICTING DIETARY INTAKE AND WALKING MORE EVERY DAY. (4) Reactive airway disease: Comment: ASTHMA/ REACTIVE AIRWAYS, CONTROLLED WELL WITH CURRENT MEDICAL REGIMEN. Code(s): J45.909 - Unspecified asthma, uncomplicated Plan: TX CONTINUE SPIRIVA HANDIHALER 1 INHALATION DAILY AND DULERA 200-5 2 puffs bid . 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 This is partly contributing to his restrictive lung disorder. Code(s): 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 Plan: NO SPECIFIC TREATMENT NEEDED Coding Level of Care Code Est Pt Level 3 (69106) Diagnoses Obesity (BMI 30-39.9) E66.9 CRISTIANA on CPAP G47.33; Z99.89 Restrictive lung disease J98.4 Reactive airway disease J45.909 Diaphragmatic eventration Q79.1
== END 2024-02-18 11:40 | disposition home or self-care (01) ==
PROVIDERS: PCP Internal Medicine; Visit Provider Internal Medicine
DX: E66.9 Obesity, unspecified (principal); G47.33 Obstructive sleep apnea (adult) (pediatric); Z99.89 Dependence on other enabling machines and devices; J98.4 Other disorders of lung; J45.909 Unspecified asthma, uncomplicated; Q79.1 Other congenital malformations of diaphragm
CPT/HCPCS: 99213

== ENCOUNTER → 2024-02-18 10:27 | Outpatient (BNVA) | payer MEDICARE, MEDICAID, SELFPAY | PROVIDERS: PCP Internal Medicine; Visit Provider Internal Medicine | DX: J45.909 Unspecified asthma, uncomplicated (principal); J98.4 Other disorders of lung; G47.33 Obstructive sleep apnea (adult) (pediatric); Q79.1 Other congenital malformations of diaphragm; E66.9 Obesity, unspecified; Z99.89 Dependence on other enabling machines and devices; Z68.36 Body mass index [BMI] 36.0-36.9, adult | CPT/HCPCS: 99212 ==

== ENCOUNTER → 2024-02-20 23:59 | Outpatient (BNV) | payer MEDICARE, MEDICAID, SELFPAY | PROVIDERS: PCP Internal Medicine; Visit Provider Internal Medicine Cardiovascular Disease | DX: I20.89 Other forms of angina pectoris (principal) | CPT/HCPCS: 93458; 99152 ==

== ENCOUNTER 2024-04-06 12:23 | Outpatient (AMB) | payer MEDICARE, MEDICAID, SELFPAY ==
[2024-04-06 12:38] VITALS: BP 126/78; PULSE 68; BMI 35.7
--- NOTE | 2024-04-06 12:38 | MHC.OFFVIS ---
Vital Signs 04/06/24 12:38 Height 5 ft 10 in Weight 249 lb 1.957 oz BMI 35.7 BP 126/78 Blood Pressure Location Lt brachial Position Sitting Pulse 68 Intake Visit Reasons: follow-up after echo and calcium score Intake Note: Follow-up after echo and calcium score c/o sob Tax Manager Required: No Allergies No Known Allergies Allergy (Verified 02/18/24 11:39) Medication List - Last Reconciled 04/06/24 by Pedro Steward MD albuterol sulfate 90 mcg/actuation (ProAir HFA) 2 puffs inhalation Q4-6H PRN 90 days ascorbic acid (vitamin C) mg PO clonazepam 0.5 mg PO BEDTIME ferrous sulfate 325 mg PO DAILY levothyroxine 100 mcg PO DAILY mometasone-formoterol 200-5 mcg/actuation (Dulera) 2 puffs inhalation BID 90 days MDD 4 puffs naproxen 500 mg PO BID PRN olanzapine 7.5 mg PO BEDTIME omeprazole 20 mg PO DAILY simvastatin 10 mg PO BEDTIME Spiriva with HandiHaler (tiotropium bromide) 1 cap inhalation DAILY NS tamsulosin (Flomax) 0.4 mg PO BEDTIME terazosin 4 mg PO BID triamcinolone acetonide 0.1% 1 appl topical BID-TID HPI Comments Details: Guillermo comes for follow-up. He underwent cardiac catheterization due to his exertional symptoms as well as significantly elevated coronary calcium score. This showed nonobstructive disease in the LAD and RCA with less than 30% stenosis although suggestive of underlying atherosclerotic heart disease. Patient continues to have exertional shortness of breath. No new symptoms. He is not on aspirin therapy as he would get bleeding when he would shave. He is on low-dose statin therapy at this point in time. [facility] Medical History (Updated 04/06/24 @ 13:03 by Pedro Steward MD) CAD (coronary artery disease) Diaphragmatic eventration Neurofibromatosis Prediabetes Schizophrenia Hypothyroidism BPH (benign prostatic hyperplasia) GERD (gastroesophageal reflux disease) Restless leg syndrome Reactive airway disease Restrictive lung disease CRISTIANA on CPAP Obesity (BMI 30-39.9) CPAP (continuous positive airway pressure) dependence COPD with exacerbation Asthma Obstructive sleep apnea Morbid obesity Surgical History Hx of colonoscopy History of facial surgery History of left inguinal hernia repair Social History Patient Tobacco Use Status: Former Tobacco user Quit Date: 2000 Review of Systems Const Denies chills, Denies fatigue, Denies fever(s), Denies frequent falls, Denies weakness, Denies weight gain and Denies weight loss ENT Denies dizziness Card Denies chest pain, Denies leg edema, Denies lightheadedness, Denies palpitations, Denies dyspnea, Denies dyspnea on exertion, Denies orthopnea and Denies other (loss of consciousness) Resp Denies cough, Denies dyspnea and Denies dyspnea on exertion GI Denies hematochezia and Denies change in stool character Musc Denies abnormal gait, Denies muscle weakness, Denies numbness, Denies radiating pain into limb and Denies tingling Neuro Denies abnormal gait, Denies dizziness, Denies frequent falls, Denies numbness, Denies tingling and Denies weakness Endo Denies fatigue and Denies palpitations Physical Exam Vital Signs: Last Vital Signs Pulse 68 04/06/24 12:38 BP 126/78 04/06/24 12:38 BMI result Body Mass Index 35.7 Const General: cooperative, comfortable, no acute distress, alert, awake and Physically active Nutritional Appearance: obese Orientation/consciousness: patient oriented x3 Limitations: no limitations HEENT Head: Yes normocephalic and Yes atraumatic Neck Neck: Yes trachea midline and Yes no JVD Resp Effort & Inspection: normal respiratory effort Auscultation: clear to auscultation bilaterally, no wheezes and diminished lung sounds Cardio Jugular venous distension: no JVD Palpation: normal PMI Rate: regular rate Rhythm: regular rhythm Heart sounds: S1 normal heart sound present, S2 normal heart sound present, no click, no gallops, no murmurs and no rubs GI Auscultation: normal bowel sounds Skin General skin exam: no rashes or lesions noted Neuro General: patient oriented x3 and no focal motor deficits Extrem General: Yes no clubbing, cyanosis or edema Assessment & Plan Assessment & Plan (1) CAD (coronary artery disease): Code(s): I25.10 - Atherosclerotic heart disease of [place] coronary artery without angina pectoris Category: Medical Plan: Coronary artery disease with markedly elevated coronary calcium score with strong family history as well as hyperlipidemia. The coronary artery disease nonobstructive in his LV filling pressures within normal limits with cardiac catheterization. Therefore the symptoms of shortness of breath are not related to cardiac issues at this point time. This was discussed with him. Continue to optimize his pulmonary function. Recommend a low-dose aspirin therapy to reduce cerebrovascular and cardiovascular thrombotic risk. Also recommend to switch his statin therapy from low-dose statin to high-intensity atorvastatin 40 mg daily. Follow-up lipid panel in 3 months time. Importance and pathophysiology of coronary artery disease as well as atherosclerotic heart disease was discussed in details. Need for medical therapy was discussed in details. He showed understanding. Will follow up in the clinic in 1 year's time, sooner p.r.n.. Thank you for allowing me to partake in his care Coding Level of Care Code Est Pt Level 4 (52049) Diagnoses CAD (coronary artery disease) I25.10
== END 2024-04-06 13:18 | disposition home or self-care (01) ==
PROVIDERS: PCP Internal Medicine; Visit Provider Internal Medicine Cardiovascular Disease
DX: I25.10 Atherosclerotic heart disease of native coronary artery without angina pectoris (principal)
CPT/HCPCS: 99214

== ENCOUNTER → 2024-04-06 12:23 | Outpatient (BNVA) | payer MEDICARE, MEDICAID, SELFPAY | PROVIDERS: PCP Internal Medicine; Visit Provider Internal Medicine Cardiovascular Disease | DX: I25.10 Atherosclerotic heart disease of native coronary artery without angina pectoris (principal); I10 Essential (primary) hypertension | CPT/HCPCS: 99212 ==

== ENCOUNTER 2025-06-01 11:20 | Outpatient (AMB) | payer MEDICARE, MEDICAID, SELFPAY ==
--- NOTE | 2025-06-01 11:24 | A.OFFPC_ITS ---
Vital Signs 06/01/25 11:26 Height 5 ft 10 in Weight 237 lb 6 oz BMI 34.1 BP 138/70 Blood Pressure Location Lt brachial Position Sitting Respiration 16 Pulse 75 Pulse Source Pulse Oximeter Temp 97.8 F Pulse Oximetry (%) 98 Oxygen Delivery Method Room Air Intake Visit Reasons: [facility] Tray Worker Required: No Accompanied by: Self / Same As Patient Allergies No Known Allergies Allergy (Verified 06/01/25 12:01) Medication List - Last Reconciled 06/01/25 by AMAURI Ramirez albuterol sulfate 90 mcg/actuation (ProAir HFA) 2 puffs inhalation Q4-6H PRN 90 days ascorbic acid (vitamin C) mg PO aspirin (Ecotrin Low Strength) 81 mg PO DAILY clonazepam 0.5 mg PO BEDTIME ferrous sulfate 325 mg PO DAILY levothyroxine 100 mcg PO DAILY mometasone-formoterol 200-5 mcg/actuation (Dulera) 2 puffs inhalation BID 90 days MDD 4 puffs naproxen 500 mg PO BID PRN olanzapine 7.5 mg PO BEDTIME omeprazole 20 mg PO DAILY rosuvastatin 40 mg PO DAILY Spiriva with HandiHaler (tiotropium bromide) 1 cap inhalation DAILY NS tamsulosin (Flomax) 0.4 mg PO BEDTIME terazosin 4 mg PO BID triamcinolone acetonide 0.1% 1 appl topical BID-TID Tobacco use date assessed: 06/01/25 Fall risk assessment: No Falls in past year Last assessed Fall Risk: 06/01/25 Dental Screening Dental Screen Date: 06/01/25 Did you have a dental visit in the last 12 months?: Yes Did you have a dental problem in the last 6 months where you did not have access to dental care?: No Was dental information given to patient?: Patient has dentist HPI [facility] HPI Details Previous PCP:Dr. Emanuel, in [place], reports that the facillity is closed Last visit: February 08, 2025 Last PE: 11/09/24 Specialist: Pulmonology, cardiology, Psychiatrist (Dr. Carrillo) OBGYN:n/a Past medical history: schizophrenia, hypothyroidism Medications: Family HX: Problem: The patient is a 64-year-old male presenting to [facility]. He has a history of coronary artery disease and reports having undergone a calcium score and cardiac catheterization. He is advised to follow up with his animal nutrition consultant annually. The patient has chronic obstructive pulmonary disease and uses a CPAP machine nightly. He reports no dyspnea with exertion indoors but experiences difficulty breathing on hot surfaces outdoors. He is advised to follow up with his night supervisor. He has benign prostatic hyperplasia, experiencing incomplete bladder emptying and increased frequency during the day, possibly exacerbated by caffeine intake. He wakes up once or twice a week at night to urinate. The patient has a history of schizophrenia and is under the care of a psychiatrist, whom he sees every six months. He is on multiple medications, including antipsychotics and statins. He has hypothyroidism and is on levothyroxine therapy. He reports no recent blood work since January and is due for lab tests. The patient also has neurofibromatosis and metabolic syndrome, with an A1c of 6 indicating controlled blood sugar levels. COUNT INCLUDES THE [facility] Medical History (Updated 06/02/25 @ 07:42 by AMAURI Ramirez) CAD (coronary artery disease) Diaphragmatic eventration Neurofibromatosis Prediabetes Schizophrenia Hypothyroidism BPH (benign prostatic hyperplasia) GERD (gastroesophageal reflux disease) Restless leg syndrome Reactive airway disease Restrictive lung disease CRISTIANA on CPAP Obesity (BMI 30-39.9) CPAP (continuous positive airway pressure) dependence COPD with exacerbation Asthma Obstructive sleep apnea Morbid obesity Surgical History Hx of colonoscopy History of facial surgery History of left inguinal hernia repair Social History Patient Tobacco Use Status: Former Tobacco user Questionnaire PHQ-9 Over the last 2 weeks, how often have you been bothered by any of the following problems? 1. Little interest or pleasure in doing things: not at all 2. Feeling down, depressed, or hopeless: not at all 3. Trouble falling or staying asleep, or sleeping too much: not at all 4. Feeling tired or having little energy: nearly every day 5. Poor appetite or overeating: not at all 6. Feeling bad about yourself - or that you are a failure or have let yourself or your family down: more than half the days 7. Trouble concentrating on things, such as reading the newspaper or watching television: nearly every day 8. Moving or speaking so slowly that other people could have noticed. Or the opposite - being so fidgety or restless that you have been moving around a lot more than usual: not at all 9. Thoughts that you would be better off or of hurting yourself in some way: not at all Total score: 8 Depression Screening Interpretation: Positive Depression Screening Done: Yes 86088 - PHQ-9 Billing: Yes Source: Developed by Drs. Kendrick Byrd, Iqra Bailon, Kevin Munson and colleagues, with an educational andrea from [employer]. Thrive Questionnaire Date Thrive assessed: 06/01/25 I am a: Patient What is your living situation today?: I have a steady place to live Within the past 12 months, did the food you bought not last and you didn't have the money to get more?: Never true Within the past 12 months, did you worry whether your food would run out before you got money to buy more?: I choose not to answer this question Do you have trouble paying for medicines?: No Do you have trouble getting transportation to medical appointments?: No Do you have trouble paying your heating and electricity bill?: No Do you have trouble taking care of your child, family member or friend?: No Do you have trouble with day-to-day activities such as bathing, preparing meals, shopping, managing finances, etc.?: No Are you currently unemployed and looking for a job?: No Are you interested in more education?: No Please select the resources that you would like help with: None Currently or been in a relationship where the following occur: I choose not to answer THRIVE Score: 0 AUDIT C Alcohol Use Questionnaire (AUDIT-C) 1. How often do you have a drink containing alcohol?: Never Total Score: 0 HARIS-7 AMB Questionnaire HARIS-7 Date HARIS - 7 assessed: 06/01/25 Feeling nervous, anxious, or on edge: 2 = More than half the days Not being able to stop or control worryin = More than half the days Worrying too much about different things: 2 = More than half the days Trouble relaxin = More than half the days Being so restless that it is hard to sit still: 2 = More than half the days Becoming easily annoyed or irritable: 2 = More than half the days Feeling afraid as if something awful might happen: 2 = More than half the days Total HARIS-7 score (0-4 normal; 5-9 mild; 10-14 moderate; 15-21 severe): 14 Source: Developed by Drs. Kendrick Byrd, Iqra Bailon, Kevin Munson and colleagues, with an educational andrea from [employer]. HARIS-7 Assessment Billing HARIS-7 Assessment Tool: HAIRS-7 Assessment 84392 Review of Systems Const Denies headache(s) Eyes Denies loss of vision ENT Denies vertigo, Denies dizziness, Denies headache(s) and Denies sore throat Card Denies chest pain, Denies leg edema and Denies lightheadedness Resp Denies cough, Denies hemoptysis and Denies wheezing GI Denies abdominal pain, Denies melena, Denies constipation, Denies diarrhea and Denies vomiting Denies dysuria, Reports urinary frequency (During the daytime attributed to caffeine intake), Denies urinary urgency and Reports other (Reports feeling of incomplete bladder emptying) Musc Denies arthralgias, Denies joint swelling, Denies numbness and Denies tingling Skin/Breast Reports other (Neurofibromatosis with multiple raised nodules, widespread) Neuro Denies Abnormal speech present, Denies behavioral changes, Denies vertigo, Denies dizziness, Denies headache(s), Denies loss of vision, Denies memory loss, Denies numbness and Denies tingling Psych Denies anxiety, Denies behavioral changes, Denies depression, Denies memory loss and Denies panic attacks [place]/Lymph Denies easy bleeding and Denies easy bruising Aller/Immun Denies wheezing Physical exam (Primary Care) Vital Signs: Last Vital Signs Temp 77 F L 06/01/25 11:26 BP 138/70 06/01/25 11:26 Oxygen Delivery Method Room Air 06/01/25 11:26 BMI result Body Mass Index 34.1 Tobacco/Smoking Status: Tobacco use Status Tobacco use date assessed 06/01/25 06/01/25 11:31 Patient Tobacco Use Status Former Tobacco user 06/01/25 11:31 PHQ-9: PHQ-9 Score PHQ-9: Total score 8 06/01/25 12:06 Depression Screening Interpretation: Positive Thrive Assessment: Date of Thrive Assessment Date Thrive assessed 06/01/25 06/01/25 11:31 Currently or been in a relationship where the following occur: I choose not to answer Const General: healthy appearing, no acute distress, alert and awake Nutritional Appearance: well nourished Orientation/consciousness: oriented to person, oriented to place and oriented to time HENMT Ears: TM's normal bilaterally General nose exam: Normal nasal mucous membranes and turbinates present Eyes Conjunctivae: conjunctivae normal Sclerae: sclerae normal Pupils: Equal, round and reactive pupils present Neck Neck: Yes no lymphadenopathy and Yes no JVD Thyroid: Thyroid normal Carotids: no bruits Resp Effort & Inspection: normal respiratory effort and not tachypneic Auscultation: no crackles, no rales, no rhonchi and no wheezes Cardio Rate: regular rate Rhythm: regular rhythm Heart sounds: no murmurs and normal S1 and S2 GI Palpation (GI): Soft to palpation, nontender, no hepatomegaly and no splenomegaly Auscultation: normal bowel sounds Skin General skin exam: dry skin Lesions: lesion noted (Multiple nodules widespread over body surface) Neuro General: oriented to person, oriented to place and oriented to time Cranial nerves: Yes Equal, round and reactive pupils present Speech: No Abnormal speech present Gait exam (Neuro): Normal gait present Motor exam (neuro): no tremor noted Extrem Right upper extremity: full ROM Left upper extremity: full ROM Right lower extremity: full ROM; no edema Left lower extremity: full ROM; no edema Psych Mental Status: mental status grossly normal Speech and movement: Normal speech and movement present Affect: normal affect Attitude: cooperative Thought process: Normal thought process present Coding Level of Care Code New Pt Level 4 (19362) Diagnoses Coronary artery disease involving [place] heart without angina pectoris, unspecified vessel or lesion type I25.10 Coronary Disease-Associated Artery/Lesion type: unspecified vessel or lesion type [place] vs. transplanted heart: [place] heart Associated angina: without angina Obesity (BMI 30-39.9) E66.9 Benign prostatic hyperplasia, unspecified whether lower urinary tract symptoms present N40.0 Lower urinary tract symptom presence: unspecified whether lower urinary tract symptoms present Neurofibromatosis Q85.00 Reactive airway disease without complication, unspecified asthma severity, unspecified whether persistent J45.909 Asthma persistence: unspecified Asthma complication type: uncomplicated Asthma severity: unspecified severity CRISTIANA on CPAP G47.33; Z99.89 Schizophrenia, unspecified type F20.9 Schizophrenia type: unspecified Hypothyroidism, unspecified type E03.9 Hypothyroidism type: unspecified Additional Codes HARIS-7 Assessment Billing - HARIS-7 Assessment Tool: HARIS-7 Assessment 95451 ([id number]) PHQ-9 - 95297 - PHQ-9 Billing: Yes ([id number]) Time Spent (min) 43 Assessment & Plan Assessment & Plan (1) CAD (coronary artery disease): Code(s): I25.10 - Atherosclerotic heart disease of [place] coronary artery without angina pectoris Category: Medical Qualifiers: Coronary Disease-Associated Artery/Lesion type: unspecified vessel or lesion type [place] vs. transplanted heart: [place] heart Associated angina: without angina Qualified Code(s): I25.10 - Atherosclerotic heart disease of [place] coronary artery without angina pectoris Plan: Per cardiology note: He underwent cardiac catheterization due to his exertional symptoms as well as significantly elevated coronary calcium score. This showed nonobstructive disease in the LAD and RCA with less than 30% stenosis although suggestive of underlying atherosclerotic heart disease. Patient continues to have exertional shortness of breath. No new symptoms. He is on low-dose statin therapy at this point in time. Patient reports that he just stopped following up with Cardiology for no reason. Continue low-dose aspirin, continue rosuvastatin 40 mg daily. Encouraged the patient to follow up with Cardiology to get back on track with his health maintenance. (2) Obesity (BMI 30-39.9): Comment: HE IS MODERATELY OBESE. CURRENTLY HIS WEIGHT IS DOWN BY 10 LBs AND HE FEELS BETTER Code(s): E66.9 - Obesity, unspecified Category: Medical Plan: Encouraged to exercise for at least 10-30 minutes a day/5 days a week Healthy eating discussed. Encouraged to eat fruits/vegetables, protein- fish/baked chicken, and to avoid salty/fried foods, sweets, caffeine and carbohydrates. Encouraged to increase water intake 6-8 glasses a day (3) BPH (benign prostatic hyperplasia): Code(s): N40.0 - Benign prostatic hyperplasia without lower urinary tract symptoms Category: Medical Qualifiers: Lower urinary tract symptom presence: unspecified whether lower urinary tract symptoms present Qualified Code(s): N40.0 - Benign prostatic hyperplasia without lower urinary tract symptoms Plan: Similarly the patient was seen urology and stopped going. He is still reporting symptoms of feeling incomplete bladder emptying. He is currently on Flomax 0.4 mg at bedtime and to her terazosin 4 mg b.i.d.. The patient is encouraged to follow up with Urology and the contact the office if he needs a new referral (4) Neurofibromatosis: Comment: Congenital . Code(s): Q85.00 - Neurofibromatosis, unspecified Category: Medical Plan: Widespread nodules. No issues at this time (5) Reactive airway disease: Comment: ASTHMA/ REACTIVE AIRWAYS, CONTROLLED WELL WITH CURRENT MEDICAL REGIMEN. Code(s): J45.909 - Unspecified asthma, uncomplicated Category: Medical Qualifiers: Asthma persistence: unspecified Asthma complication type: uncomplicated Asthma severity: unspecified severity Qualified Code(s): J45.909 - Unspecified asthma, uncomplicated Plan: Patient also was being followed by pulmonology. Reports that he has missed 1 appointment and never gone back. His breathing seemed to be mostly controlled on his current regimen. Reports that endorses he is able to do most activity without being short of breath. However, whenever he goes outside in the humidity or change of weather, he gets short of breath with certain activities that resolves with resting. Continue Dulera 2 puffs inhalation b.i.d., Spiriva 1 cap daily, and albuterol sulfate rescue inhaler 2 puffs q.4 to 6 H p.r.n.. Similarly, the patient was encouraged to follow up with pulmonology and to let the office know if he needs a new referral (6) CRISTIANA on CPAP: Comment: HE HAS LONGSTANDING HISTORY OF CRISTIANA. HE HAS NEW CPAP EQUIPMENT, WHICH IS WORKING VERY WELL. HE HAS BEEN VERY COMPLIANT AND BENEFITING FROM THE USE OF CPAP. Code(s): G47.33 - Obstructive sleep apnea (adult) (pediatric); Z99.89 - Dependence on other enabling machines and devices Category: Medical Plan: Patient has a longstanding history of CRISTIANA. He reports CPAP compliance (7) Schizophrenia: Code(s): F20.9 - Schizophrenia, unspecified Category: Medical Qualifiers: Schizophrenia type: unspecified Qualified Code(s): F20.9 - Schizophrenia, unspecified Plan: Continue olanzapine 7.5 mg at bedtime, clonazepam 0.5 mg at bedtime. Follow up with Psychiatry (DR. CARRILLO) as scheduled (8) Hypothyroidism: Code(s): E03.9 - Hypothyroidism, unspecified Category: Medical Qualifiers: Hypothyroidism type: unspecified Qualified Code(s): E03.9 - Hypothyroidism, unspecified Plan: PATIENT REPORTS HAVING LABS DONE IN JANUARY. Reports that he does not have the results due to his previous practice being closed. He is currently on levothyroxine 100 mcg daily. 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 Lipid Panel Today E66.9 - Obesity, unspecified, G47.33 - Obstructive sleep apnea (adult) (pediatric), I25.10 - Atherosclerotic heart disease of [place] coronary artery without angina pectoris, J45.909 - Unspecified asthma, uncomplicated, J98.4 - Other disorders of lung, N40.0 - Benign prostatic hyperplasia without lower urinary tract symptoms, 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 UA CC w/rflx Micro + Cult Today E66.9 - Obesity, unspecified, G47.33 - Obstructive sleep apnea (adult) (pediatric), I25.10 - Atherosclerotic heart disease of [place] coronary artery without angina pectoris, J45.909 - Unspecified asthma, uncomplicated, J98.4 - Other disorders of lung, N40.0 - Benign prostatic hyperplasia without lower urinary tract symptoms, 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 Free T4 (Free Thyroxine) Today E66.9 - Obesity, unspecified, G47.33 - Obstructive sleep apnea (adult) (pediatric), I25.10 - Atherosclerotic heart disease of [place] coronary artery without angina pectoris, J45.909 - Unspecified asthma, uncomplicated, J98.4 - Other disorders of lung, N40.0 - Benign prostatic hyperplasia without lower urinary tract symptoms, Q79.1 - Other congenital m alformations of diaphragm, Q85.00 - Neurofibromatosis, unspecified, R06.02 - Shortness of breath, Z99.89 - Dependence on other enabling machines and devices Hemoglobin A1c Today E66.9 - Obesity, unspecified, G47.33 - Obstructive sleep apnea (adult) (pediatric), I25.10 - Atherosclerotic heart disease of [place] coronary artery without angina pectoris, J45.909 - Unspecified asthma, uncomplicated, J98.4 - Other disorders of lung, N40.0 - Benign prostatic hyperplasia without lower urinary tract symptoms, 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 PSA,Total (Free>4and<10) Today E66.9 - Obesity, unspecified, G47.33 - Obstructive sleep apnea (adult) (pediatric), I25.10 - Atherosclerotic heart disease of [place] coronary artery without angina pectoris, J45.909 - Unspecified asthma, uncomplicated, J98.4 - Other disorders of lung, N40.0 - Benign prostatic hyperplasia without lower urinary tract symptoms, 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 Vitamin D 25-OH Total Today E66.9 - Obesity, unspecified, G47.33 - Obstructive sleep apnea (adult) (pediatric), I25.10 - Atherosclerotic heart disease of [place] coronary artery without angina pectoris, J45.909 - Unspecified asthma, uncomplicated, J98.4 - Other disorders of lung, N40.0 - Benign prostatic hyperplasia without lower urinary tract symptoms, 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 TSH reflex Free T4 Today E66.9 - Obesity, unspecified, G47.33 - Obstructive sleep apnea (adult) (pediatric), I25.10 - Atherosclerotic heart disease of [place] coronary artery without angina pectoris, J45.909 - Unspecified asthma, uncomplicated, J98.4 - Other disorders of lung, N40.0 - Benign prostatic hyperplasia without lower urinary tract symptoms, 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
[2025-06-01 11:26] VITALS: BP 138/70; PULSE 75; RESP 16; TEMP 36.6; O2SAT 98; BMI 34.1
--- OUTSIDE RECORDS SUMMARY | 2025-06-01 12:43 | XMS_ITS | Patient Health Record ---
Author Organization [facility] Address [address] [place] [address] Care Team Providers Care Motor Pool Clerk Name Role Phone Jenae (RETIRED) Maximus CAMARILLO Primary Care Provider Unavailable Kendrick Kothari Unavailable [phone] Allergies No Known Allergies Reason For Referral No Information Medications Medication SIG (Take, Route, Frequency, Duration) Notes Start Date End Date Status Multivitamin - as directed Orally Active Folic Acid Active Vitamin C 500 MG as directed Orally Active Levothyroxine Sodium 100 MCG 1 capsule i n the morning on an empty stomach Orally Once a day Active Flax Oil Xtra - as directed Orally Active ZyPREXA Active Naproxen 500 MG 1 tablet as needed Orally every 12 hrs Active Zinc 25 MG 1 tablet Orally Once a day for 30 day(s) Active OLANZapine 7.5 MG 1 tablet Orally Once a day for 30 day(s) Active D3 50 MCG (1999 UT) 1 tablet Orally Once a day for 30 day(s) Active Simvastatin 10 MG 1 tablet in the even ing Orally Once a day for 30 day(s) Active Elderberry Zinc/Vit C/Immune - as directed Mouth/Throat Act maida clonazePAM 0.5 MG 1 tablet at bedtime Orally Once a day Active Fish Oil 500 MG 1 capsule Orally Twi ce a day for 30 day(s) Active Terazosin HCl 2 MG 1 capsule at bedtime Orally 4 mg once a day Active Symbicort 160-4.5 MCG/ACT 2 puffs Inhala tion Twice a day Active Atorvastatin Calcium Active Spiriva HandiHaler 18 MCG 1 capsule by i nhaling the contents of the capsule using the HandiHaler device Inhalation Once a day Active Colyte with Flavor Packs 240 GM As directed Orally once for 1 day(s) 10/01/2012 Active Omeprazole 20 MG 1 capsule 30 minutes before morning meal Orally Once a day for 30 day(s) Active Immunizations Vaccine Route Administration Date Status Comme nts Influenza Unknown 09/20/2021 Administered Problems Problem Type SNOMED Code ICD Code Onset Dates Problem Status W/U Status Risk Notes Problem Gastroesophageal reflux disease (108591467) Gastroesophageal reflux disease (K21.9) Active confirmed Problem Iron deficiency anemia (02447541) Iron deficiency anemia (D50.9) Active confirmed Problem 68984728 Iron deficiency anemia, unspecified iron deficiency anemia type (D50.9) Active confirmed Problem Diverticulosis of colon (556651335) Diverticulosis of colon (K57.30) Active confirmed Plan Of Treatment Pending Test Test Name Order Date Pathology 10/23/2021 Future Test Test Name Order Date COLONOSCOPY 10/01/2012 UPPER GI ENDOSCOPY 09/27/2021 COLONOSCOPY 09/27/2021 Insurance Providers Payer Name Payer Address Payer Phone Subscriber Number Group Number Insured Name Patient Relationship to Insured Coverage Start Date Coverage End Date MEDICARE OF [place] [address] [place] [id number] ALYSSA RUBI Self - patient is the insured MEDICAID OF [facility] [address] [place] [address] [id number] ALYSSA RUBI Self - patient is the insured Medical (General) History Medical History History ICD Code Denies AL,DM,CVA,renal disease Neurofibromatosis Hypothyroidism Hyperlipidemia BPH Schizophrenia 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
--- OUTSIDE RECORDS SUMMARY | 2025-06-01 12:43 | XMS_ITS | Patient Health Record ---
Author Organization [facility] [place] Address [address] [place] [address] Care Team Providers Care Cogeneration Technician Name Role Phone Maximus Emanuel MD Primary Care Provider Unavailab Brijesh Escobar Unavailable [phone] Reason For Referral No Information Medications Medication SIG (Take, Route, Frequency, Duration) Notes Start Date End Date Status Folic Acid 1 MG 1 tablet Orally Once a day Active Levothyroxine Sodium 15 1 tablet Orally Once a day Active OLANZapine 12.5 1 tablet Orally Once a day Active Atorvastatin Calcium 10 MG 1 tablet Oral ly Once a day Active Terazosin HCl 2 MG 1 capsule Orally 2 Active clonazePAM 0.5 MG 1 tablet Orally Twic e a day Active Night Splint AFO - L1930 as directed 06/26/2016 Not-Taking Problems Problem Type SNOMED Code ICD Code Onset Dates Problem Status W/U Status Risk Notes Problem Plantar fascial fibromatosis (49684453) Plantar fascial fibromatosis (M72.2) Active confirmed Plan Of Treatment No Information Insurance Providers Payer Name Payer Address Payer Phone Subscriber Number Group Number Insured Name Patient Relationship to Insured Coverage Start Date Coverage End Date Medicare National [facility] [address] [place] [address] [id number] Guillermo Cosby Self - patient is the insured 3 Medical (General) History Medical History History ICD Code Anxiety Psychiatric disorder Schizophrenia COPD Neurofibromatosis 1 Cholesterol Thyroid Surgical History Surgery Date(Month/Year) hernia lip surgery
== END 2025-06-01 12:33 | disposition home or self-care (01) ==
LOC: HO.HMCH 11:21
PROVIDERS: PCP Internal Medicine
DX: Q85.00 Neurofibromatosis, unspecified (principal); F20.9 Schizophrenia, unspecified; E66.9 Obesity, unspecified; Z68.34 Body mass index [BMI] 34.0-34.9, adult; I25.10 Atherosclerotic heart disease of native coronary artery without angina pectoris; N40.0 Benign prostatic hyperplasia without lower urinary tract symptoms; J45.909 Unspecified asthma, uncomplicated; G47.33 Obstructive sleep apnea (adult) (pediatric); Z99.89 Dependence on other enabling machines and devices; E03.9 Hypothyroidism, unspecified

== ENCOUNTER → 2025-06-01 11:20 | Outpatient (BNVA) | payer MEDICARE, MEDICAID, SELFPAY | PROVIDERS: PCP Internal Medicine | DX: I25.10 Atherosclerotic heart disease of native coronary artery without angina pectoris (principal); E66.9 Obesity, unspecified; Z68.34 Body mass index [BMI] 34.0-34.9, adult; N40.0 Benign prostatic hyperplasia without lower urinary tract symptoms; Q85.00 Neurofibromatosis, unspecified; J45.909 Unspecified asthma, uncomplicated; G47.33 Obstructive sleep apnea (adult) (pediatric); Z99.89 Dependence on other enabling machines and devices; F20.9 Schizophrenia, unspecified; E03.9 Hypothyroidism, unspecified; Z71.3 Dietary counseling and surveillance; Z87.891 Personal history of nicotine dependence | CPT/HCPCS: 96127; 99202 ==

== ENCOUNTER 2025-06-02 06:10 | Outpatient (REF) | payer MEDICARE, MEDICAID, SELFPAY ==
[2025-06-02 06:27] LABS: MANUAL DIFF FLAG NO
[2025-06-02 07:35] LABS: Hematocrit 43.1 % (42.0-52.0); Hemoglobin 13.7 g/dl (14.0-18.0); Imm Gran Abs Auto 0.03 X10*3/uL (0.00-0.03); Imm Gran Pct Auto 0.4 % (0.0-0.4); Lymphocytes Absolute Auto 2.1 X10*3/uL (1.2-4.9); Mean Corpuscular HGB Conc 31.8 g/dl (31.0-36.0); Mean Corpuscular Hemoglobin 23.5 pg (27.0-33.0); Mean Corpuscular Volume 73.9 fL (80.0-98.0); NRBC Abs Auto 0.000 X10*3/uL (0.0-0.012); NRBC Pct Auto 0.0 /100WBC (0.0-0.2); Platelet Count 256 X10*3/uL (160-400); Red Blood Count 5.83 X10*6/uL (4.60-5.80); White Blood Count 8.5 X10*3/uL (4.8-10.8)
[2025-06-02 07:41] LABS: Hemoglobin A1C 145.9729 umol/L; Total Hemoglobin (HGBA1C) 3582.3446 umol/L
[2025-06-02 07:59] LABS: Appearance Urine Clear; Glucose Urine UA Negative (Negative); PH 7.0 (5.0-9.0); Specific Gravity - Urine 1.010 (1.005-1.025)
[2025-06-02 08:10] LABS: Alanine Aminotransferase 22 U/L (0-40); Albumin Level 4.6 g/dL (3.5-5.0); Alkaline Phosphatase 40 U/L (39-117); Anion Gap 13 (12-20); Aspartate Amino Transferase 20 U/L (5-37); Blood Urea Nitrogen 16 mg/dL (9-16); Calcium 10.0 mg/dL (8.4-10.2); Carbon Dioxide 28 mmol/L (22-29); Chloride 105 mmol/L (96-108); Cholesterol 128 mg/dL (<200); Estimated Glomerular Filt Rate > 60; HDL Cholesterol 57 mg/dL (>40); Potassium 4.5 mmol/L (3.3-5.1); Sodium 141 mmol/L (135-145); Total Protein 7.2 g/dL (6.5-8.0); Triglycerides 72 mg/dL (<150)
[2025-06-02 08:26] LABS: Free T4 (Free Thyroxine) 1.26 ng/dL (0.71-1.85)
[2025-06-02 08:28] LABS: PSA,Total (Free>4and<10) 0.68 ng/mL (0.00-4.00)
== END 2025-06-02 06:11 | disposition home or self-care (01) ==
LOC: HO.LAB 06:10
DX: I25.10 Atherosclerotic heart disease of native coronary artery without angina pectoris (principal); R06.02 Shortness of breath; E66.9 Obesity, unspecified; Q79.1 Other congenital malformations of diaphragm; N40.0 Benign prostatic hyperplasia without lower urinary tract symptoms; Q85.00 Neurofibromatosis, unspecified; J45.909 Unspecified asthma, uncomplicated; J98.4 Other disorders of lung; G47.33 Obstructive sleep apnea (adult) (pediatric); Z99.89 Dependence on other enabling machines and devices; Z68.30 Body mass index [BMI] 30.0-30.9, adult
CPT/HCPCS: 36415; 80053; 80061; 81003; 82306; 83036; 84153; 84439; 84443; 85025

== ENCOUNTER 2025-07-23 09:24 | Outpatient (AMB) | payer MEDICARE, MEDICAID, SELFPAY ==
--- NOTE | 2025-07-23 09:41 | MHC.OFFVIS ---
Vital Signs 07/23/25 09:42 Height 5 ft 10 in Weight 238 lb 1.588 oz BMI 34.2 BP 120/70 Blood Pressure Location Lt brachial Position Sitting Pulse 67 Intake Visit Reasons: 1 yr f/up Intake Note: 1 year follow-up with ekg feeling good Lead Infrastructure Architect Required: No Allergies No Known Allergies Allergy (Verified 06/01/25 12:01) Medication List - Last Reconciled 07/23/25 by Pedro Steward MD albuterol sulfate 90 mcg/actuation (ProAir HFA) 2 puffs inhalation Q4-6H PRN 90 days aspirin (Ecotrin Low Strength) 81 mg PO DAILY clonazepam 0.5 mg PO BEDTIME levothyroxine 125 mcg PO DAILY mometasone-formoterol 200-5 mcg/actuation (Dulera) 2 puffs inhalation BID 90 days MDD 4 puffs naproxen 500 mg PO BID PRN olanzapine 7.5 mg PO BEDTIME rosuvastatin 40 mg PO DAILY Spiriva with HandiHaler (tiotropium bromide) 1 cap inhalation DAILY NS tamsulosin (Flomax) 0.4 mg PO BEDTIME terazosin 4 mg PO BID triamcinolone acetonide 0.1% 1 appl topical BID-TID HPI Comments Details: Guillermo comes for follow-up. He said he has been doing well from cardiac perspective. Denies any symptoms of worsening shortness of breath. He said he has shortness of breath is same as before due to his COPD. He has no exertional chest pain. He said he exercise regularly and tries to do multiple exercise including strength training and aerobic exercises and has no new symptoms. His last LDL is well optimized at 57. He denies any prolonged palpitation irregular heartbeat. He says blood pressure has been well controlled. Denies any lightheadedness, syncope. [facility] Medical History CAD (coronary artery disease) Diaphragmatic eventration Neurofibromatosis Prediabetes Schizophrenia Hypothyroidism BPH (benign prostatic hyperplasia) GERD (gastroesophageal reflux disease) Restless leg syndrome Reactive airway disease Restrictive lung disease [place]ST[place] on CPAP Obesity (BMI 30-39.9) CPAP (continuous positive airway pressure) dependence COPD with exacerbation Asthma Obstructive sleep apnea Morbid obesity Surgical History Hx of colonoscopy History of facial surgery History of left inguinal hernia repair Social History Patient Tobacco Use Status: Former Tobacco user Review of Systems Const Denies chills, Denies fatigue, Denies fever(s), Denies frequent falls, Denies weakness, Denies weight gain and Denies weight loss ENT Denies dizziness Card Denies chest pain, Denies leg edema, Denies lightheadedness, Denies palpitations, Denies dyspnea, Denies dyspnea on exertion, Denies orthopnea and Denies other (loss of consciousness) Resp Denies cough, Denies dyspnea and Denies dyspnea on exertion GI Denies hematochezia and Denies change in stool character Musc Denies abnormal gait, Denies muscle weakness, Denies numbness, Denies radiating pain into limb and Denies tingling Neuro Denies abnormal gait, Denies dizziness, Denies frequent falls, Denies numbness, Denies tingling and Denies weakness Endo Denies fatigue and Denies palpitations Physical Exam Vital Signs: Last Vital Signs Pulse 67 07/23/25 09:42 BP 120/70 07/23/25 09:42 BMI result Body Mass Index 34.2 Const General: cooperative, comfortable, no acute distress, alert, awake and Physically active Nutritional Appearance: obese Orientation/consciousness: patient oriented x3 Limitations: no limitations HEENT Head: Yes normocephalic and Yes atraumatic Neck Neck: Yes trachea midline and Yes no JVD Resp Effort & Inspection: normal respiratory effort Auscultation: clear to auscultation bilaterally, no wheezes and diminished lung sounds Cardio Jugular venous distension: no JVD Palpation: normal PMI Rate: regular rate Rhythm: regular rhythm Heart sounds: S1 normal heart sound present, S2 normal heart sound present, no click, no gallops, no murmurs and no rubs GI Auscultation: normal bowel sounds Skin General skin exam: no rashes or lesions noted Neuro General: patient oriented x3 and no focal motor deficits Extrem General: Yes no clubbing, cyanosis or edema Office Procedures EKG Details: EKG shows normal sinus rhythm nonspecific ST-T changes [id number], Complete Assessment & Plan Assessment & Plan (1) CAD (coronary artery disease): Code(s): I25.10 - Atherosclerotic heart disease of [place] coronary artery without angina pectoris Category: Medical Qualifiers: Coronary Disease-Associated Artery/Lesion type: unspecified vessel or lesion type [place] vs. transplanted heart: [place] heart Associated angina: without angina Qualified Code(s): I25.10 - Atherosclerotic heart disease of [place] coronary artery without angina pectoris Plan: CAD nonobstructive by cardiac catheterization with heavy coronary calcium suggestive of underlying significant coronary atherosclerosis although he has no current worsening symptoms. At this point time no further workup is indicated. I would recommend him to continue with aggressive medical therapy. Recommend to continue aspirin lifelong. Continue high-intensity statin therapy with well optimized LDL at current point time. Encouraged to maintain and improve his aerobic conditioning as tolerated. Continue aggressive blood pressure control which is currently well optimized without any medications. Advise low-salt diet. Also advised to continue aggressive diabetes management which is currently in prediabetic stage. He understands management well. Advised to call me with any new symptoms. Will follow up in the clinic in 1 year's time, sooner PRN. Thank you for allowing me to partake in his care Coding Level of Care Code Est Pt Level 4 (67239) Complex EM visit Add On G2211 Diagnoses Coronary artery disease involving [place] heart without angina pectoris, unspecified vessel or lesion type I25.10 Coronary Disease-Associated Artery/Lesion type: unspecified vessel or lesion type [place] vs. transplanted heart: [place] heart Associated angina: without angina CPT Codes EKG - CPT: 97730-[id number], Complete ([id number])
[2025-07-23 09:42] VITALS: BP 120/70; PULSE 67; BMI 34.2
--- OUTSIDE RECORDS SUMMARY | 2025-07-23 10:07 | XMS_ITS | Patient Health Record ---
Author Organization [facility] Address [address] [place] [address] Care Team Providers Care Construction Supervisor/Carpenter Name Role Phone Maximus Emanuel MD Primary Care Provider Unavailab Brijesh Escobar Unavailable [phone] Reason For Referral No Information Medications Medication [...] Status Risk Notes Problem Plantar fascial fibromatosis (03550119) Plantar fascial fibromatosis (M72.2) Active confirmed Plan Of Treatment No Information Insurance Providers Payer Name Payer Address Payer Phone Subscriber Number Group Number Insured Name Patient Relationship to Insured Coverage Start Date Coverage End Date Medicare [facility] [address] [place] [address] [phone] [id number] Guillermo Cosby Self - patient is the insured 3 Medical (General) History Medical History History ICD Code Anxiety Psychiatric disorder Schizophrenia COPD Neurofibromatosis 1 Cholesterol Thyroid Surgical History Surgery Date(Month/Year) hernia lip surgery
--- OUTSIDE RECORDS SUMMARY | 2025-07-23 10:08 | XMS_ITS | Patient Health Record ---
Author Organization [facility] Address [address] [place] [address] Care Team Providers Care Radiation Protection Technician Name Role Phone Jenae (RETIRED) Maximus CAMARILLO Primary Care Provider Unavailable Kendrick Kothari Unavailable [phone] Allergies No Known Allergies Reason For Referral [...] Status Risk Notes Problem Gastroesophageal reflux disease (905605872) Gastroesophageal reflux disease (K21.9) Active confirmed Problem Iron deficiency anemia (79266568) Iron deficiency anemia (D50.9) Active confirmed Problem 66972077 Iron deficiency anemia, unspecified iron deficiency anemia type (D50.9) Active confirmed Problem Diverticulosis of colon (065560351) Diverticulosis of colon (K57.30) Active confirmed Plan Of Treatment Pending Test Test Name Order Date Pathology 10/23/2021 Future Test Test Name Order Date COLONOSCOPY 10/01/2012 UPPER GI ENDOSCOPY 09/27/2021 COLONOSCOPY 09/27/2021 Insurance Providers Payer Name Payer Address Payer Phone Subscriber Number Group Number Insured Name Patient Relationship to Insured Coverage Start Date Coverage End Date MEDICARE OF [place] [address] [place] [id number] ALYSSA RUBI Self - patient is the insured MEDICAID OF [facility] [address] [place] [address] [id number] ALYSSA RUBI Self - patient is the insured Medical (General) History Medical History History ICD Code Denies CT,DM,CVA,renal disease Neurofibromatosis Hypothyroidism Hyperlipidemia BPH Schizophrenia 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
== END 2025-07-23 10:07 | disposition home or self-care (01) ==
LOC: HO.HCS 09:25
PROVIDERS: Visit Provider Internal Medicine Cardiovascular Disease
DX: I25.10 Atherosclerotic heart disease of native coronary artery without angina pectoris (principal)
CPT/HCPCS: 93010; 99214; G2211

== ENCOUNTER → 2025-07-23 09:24 | Outpatient (BNVA) | payer MEDICARE, MEDICAID, SELFPAY | PROVIDERS: Visit Provider Internal Medicine Cardiovascular Disease | DX: I25.10 Atherosclerotic heart disease of native coronary artery without angina pectoris (principal); Z87.891 Personal history of nicotine dependence | CPT/HCPCS: 93005; 99212 ==

== ENCOUNTER 2025-08-25 13:44 | Outpatient (AMB) | payer MEDICARE, MEDICAID, SELFPAY ==
[2025-08-25 14:02] VITALS: BP 124/68; PULSE 69; O2SAT 97; BMI 34.2
--- NOTE | 2025-08-25 14:02 | MHC.OFFVIS ---
Vital Signs 08/25/25 14:02 Height 5 ft 10 in Weight 238 lb 1.588 oz BMI 34.2 BP 124/68 Blood Pressure Location Lt brachial Position Sitting Pulse 69 Pulse Source Pulse Oximeter Pulse Oximetry (%) 97 Oxygen Delivery Method Room Air Intake Visit Reasons: nik Intake Note: pt is here for follow up and states he has some shortness of breath when walking outside, coughing with mucous, please refill Dulura. Rocket Propellant Plant Supervisor Required: No Course Developer: Course Developer offered & declined Allergies No Known Allergies Allergy (Verified 08/25/25 14:30) Medication List - Last Reconciled 08/25/25 by Amilcar Rivas MD albuterol sulfate 90 mcg/actuation (ProAir HFA) 2 puffs inhalation Q4-6H PRN 90 days aspirin (Ecotrin Low Strength) 81 mg PO DAILY clonazepam 0.5 mg PO BEDTIME levothyroxine 125 mcg PO DAILY mometasone-formoterol 200-5 mcg/actuation (Dulera) 2 puffs inhalation BID 90 days MDD 4 puffs naproxen 500 mg PO BID PRN olanzapine 7.5 mg PO BEDTIME rosuvastatin 40 mg PO DAILY Spiriva with HandiHaler (tiotropium bromide) 1 cap inhalation DAILY NS tamsulosin (Flomax) 0.4 mg PO BEDTIME terazosin 4 mg PO BID triamcinolone acetonide 0.1% 1 appl topical BID-TID Do you need a note to return to daycare/school/sports/work: No HPI HPI nik: Details: 64 years old Mr. Carter is here for yearly checkup. He is followed by me for COPD/restrictive lung disease and obstructive sleep apnea. Has been very stable during the whole year. Uses CPAP very regularly every night and sleeps more than 8 hours per night. He remains alert during the daytime without any sleepiness. Breathing has been stable except for intermittent bouts of cough and some wheezing. He continues to use Dulera b.i.d. and Spiriva HandiHaler once a day. He hardly needs to use albuterol. Has had no acute respiratory infection during the past 1 year. [facility] Medical History CAD (coronary artery disease) Diaphragmatic eventration Neurofibromatosis Prediabetes Schizophrenia Hypothyroidism BPH (benign prostatic hyperplasia) GERD (gastroesophageal reflux disease) Restless leg syndrome Reactive airway disease Restrictive lung disease NIK on CPAP Obesity (BMI 30-39.9) CPAP (continuous positive airway pressure) dependence COPD with exacerbation Asthma Obstructive sleep apnea Morbid obesity Surgical History Hx of colonoscopy History of facial surgery History of left inguinal hernia repair Social History Patient Tobacco Use Status: Former Tobacco user Review of Systems Const All systems reviewed & are unremarkable except as noted in HPI and below Eyes Reports no additional complaints ENT Reports no additional complaints Card Denies chest pain, Denies irregular heart rhythm and Denies leg edema Resp Reports as per HPI GI Reports dyspepsia (BEING TREATED WITH OMEPRAZOLE ) and Reports heartburn Reports no additional complaints Musc Reports no additional complaints Neuro Reports no additional complaints Psych Reports anxiety (UNDER CONTROL) and Reports depression (UNDER CONTROL) Endo Reports no additional complaints Physical Exam Vital Signs: Last Vital Signs Pulse 69 08/25/25 14:02 BP 124/68 08/25/25 14:02 Pulse Ox 97 08/25/25 14:02 Oxygen Delivery Method Room Air 08/25/25 14:02 BMI result Body Mass Index 34.2 Const Other: Remains grossly overweight and there has been no change in his weight in the last 6 months. General: comfortable, no acute distress, alert and awake Orientation/consciousness: patient oriented x3 HEENT Head: Yes normal to inspection General nose exam: No nasal polyps present and No nasal discharge present Face and sinus: Yes sinuses nontender Mouth: oropharynx normal Throat: Yes posterior oropharynx normal Eyes General: appearance normal, both eyes and all related structures Neck Neck: Yes normal visual inspection, Yes no lymphadenopathy, Yes trachea midline and Yes no JVD Thyroid: Thyroid normal Chest Chest palpation & inspection: normal inspection of the chest, normal palpation of entire chest wall and no tenderness Resp Other: Percussion note is resonant, breath sounds are generally diminished, more so over the rt lower lobe . But no wheezes rhonchi or Creps are heard. Cardio Palpation: normal PMI Rate: regular rate Rhythm: regular rhythm Heart sounds: no gallops and no murmurs Peripheral pulses: Peripheral pulses 2+ throughout GI Palpation (GI): Soft to palpation, nontender, No hepatosplenomegaly present and no masses Auscultation: normal bowel sounds Back/Spine/Pelvis Thoracic/Lumbar Spine: thoracic and lumbar spine normal to inspection Skin General skin exam: rashes and/or lesions noted (He has extensive, generalized in neurofibromatosis lesions.) Neuro General: patient oriented x3 and no focal motor deficits Cranial nerves: Yes CN's II-XII intact bilaterally Extrem General: Yes normal to inspection, Yes no clubbing, cyanosis or edema and Yes no calf tenderness Psych Appearance: grossly normal and well kempt Speech and movement: Normal speech and movement present Results Reviewed Results Reviewed: COMPLIANCE REPORT FOR THE LAST 30 NIGHTS REVIEWED AND HE HAS BEEN USING 100% OF THE NIGHTS. AVERAGE USE IT PER NIGHT 8 HOURS 8 MINUTES. CPAP= 12 CM. THERE IS NO AIR LEAK AND RESIDUAL AHI 0.2 Assessment & Plan Assessment & Plan (1) Restrictive lung disease: Comment: SEVERE RESTRICTIVE PULMONARY DISORDER SEC .TO : EVENTRATION OF RT HEMIDIAPHRAGM AN OBESITY . VERY STABLE. SUBJECTIVELY DOING VERY WELL. Code(s): J98.4 - Other disorders of lung Category: Medical Plan: TRY TO DO DEEP BREATHING EXERCISES ABOUT 3 TIMES A DAY (2) Reactive airway disease: Comment: ASTHMA/ REACTIVE AIRWAYS, CONTROLLED WELL WITH CURRENT MEDICAL REGIMEN. HAS ONLY MILD SHORTNESS OF BREATH ON WALKING FAST OR CLIMBING STAIRS. Code(s): J45.909 - Unspecified asthma, uncomplicated Category: Medical Qualifiers: Asthma severity: unspecified severity Asthma persistence: unspecified Asthma complication type: uncomplicated Qualified Code(s): J45.909 - Unspecified asthma, uncomplicated Plan: CONTINUE TO USE DULERA 200-5 2 PUFFS B.I.D. SPIRIVA HANDIHALER 1 INHALATION DAILY. ALBUTEROL HFA HFA 2 PUFFS Q 6 HOURS ONLY P.R.N. (3) NIK on CPAP: Comment: HE HAS LONGSTANDING HISTORY OF NIK. HE HAS NEW CPAP EQUIPMENT, WHICH IS WORKING VERY WELL. HE HAS BEEN VERY COMPLIANT AND BENEFITING FROM THE USE OF CPAP. Code(s): G47.33 - Obstructive sleep apnea (adult) (pediatric); Z99.89 - Dependence on other enabling machines and devices Category: Medical Plan: COMMENDED FOR EXCELLENT COMPLIANCE AND ADVISED TO KEEP ON USING THE CPAP REGULARLY EVERY NIGHT Coding Level of Care Code Est Pt Level 3 (13297) Diagnoses Restrictive lung disease J98.4 Reactive airway disease without complication, unspecified asthma severity, unspecified whether persistent J45.909 Asthma severity: unspecified severity Asthma persistence: unspecified Asthma complication type: uncomplicated NIK on CPAP G47.33; Z99.89
== END 2025-08-25 14:30 | disposition home or self-care (01) ==
LOC: HO.HPS 13:45
PROVIDERS: Visit Provider Internal Medicine
DX: J98.4 Other disorders of lung (principal); J45.909 Unspecified asthma, uncomplicated; G47.33 Obstructive sleep apnea (adult) (pediatric); Z99.89 Dependence on other enabling machines and devices
CPT/HCPCS: 99213

== ENCOUNTER → 2025-08-25 13:44 | Outpatient (BNVA) | payer MEDICARE, MEDICAID, SELFPAY | PROVIDERS: Visit Provider Internal Medicine | DX: G47.33 Obstructive sleep apnea (adult) (pediatric) (principal); Z99.89 Dependence on other enabling machines and devices; J45.909 Unspecified asthma, uncomplicated; J98.4 Other disorders of lung; Z87.891 Personal history of nicotine dependence | CPT/HCPCS: 99212 ==